=== PATIENT | male | born 1965 | race Caucasian/White ===

== ENCOUNTER 2018-03-08 15:04 | Emergency (ER) | payer OTHER ==
[2018-03-08 15:14] VITALS: BP 162/85; PULSE 79; RESP 18; TEMP 98.5
--- NOTE | 2018-03-08 16:20 | ED ---
Fall HPI - General Chief Complaint: Fall Stated Complaint: slip & fall/head injury [facility] Time Seen by Provider: 03/08/18 15:28 Source: patient, RN notes reviewed, old records reviewed Mode of arrival: ambulatory - History of Present Illness Initial Comments: this patient's a 52-year-old male chief complaint slip stairs causing a minor head injury. He states he has some scratches on his back and complains of some mid back pain. He states that he does not know if he lost consciousness or hit his head on the back of the stair. Patient initially went to [employer] [facility] was sent here for the head injury. Patient states that he's had no significant neck pain. He reports he has no bruising or bleeding on the scalp. Patient denies any recent fever, chills, shortness of breath, chest pain, abdominal pain, nausea vomiting, numbness or tingling, dysuria or hematuria, constipation or diarrhea, headaches or visual changes, or any other current symptoms - Related Data Previous Rx's Medication Instructions Recorded Cyclobenzaprine [Flexeril] 10 mg PO TID #15 tab 03/08/18 Ibuprofen [Motrin] 600 mg PO Q6HR PRN #15 tab 03/08/18 Allergies Allergy/AdvReac Type Severity Reaction Status Date / Time No Known Allergies Allergy Verified 03/08/18 15:15 Review of Systems ROS Statement: Those systems with pertinent positive or pertinent negative responses have been documented in the HPI. ROS Other: All systems not noted in ROS Statement are negative. Past Medical History Past Medical History: Hypertension History of Any Multi-Drug Resistant Organisms: None Reported Past Surgical History: No Surgical Hx Reported Past Psychological History: Depression Smoking Status: Never smoker Past Alcohol Use History: None Reported Past Drug Use History: None Reported General Exam - General Exam Comments Initial Comments: 52-year-old male. Alert and oriented. No acute distress. Limitations: no limitations General appearance: alert, in no apparent distress Head exam: Present: atraumatic, normocephalic, normal inspection Eye exam: Present: normal appearance, PERRL, EOMI. Absent: scleral icterus, conjunctival injection, periorbital swelling ENT exam: Present: normal exam, mucous membranes moist Neck exam: Present: normal inspection. Absent: tenderness, meningismus, lymphadenopathy Respiratory exam: Present: normal lung sounds bilaterally. Absent: respiratory distress, wheezes, rales, rhonchi, stridor Cardiovascular Exam: Present: regular rate, normal rhythm, normal heart sounds. Absent: systolic murmur, diastolic murmur, rubs, gallop, clicks GI/Abdominal exam: Present: soft, normal bowel sounds. Absent: distended, tenderness, guarding, rebound, rigid Extremities exam: Present: normal inspection, full ROM, normal capillary refill. Absent: tenderness, pedal edema, joint swelling, calf tenderness Back exam: Present: normal inspection, other ( is abrasions noted over the mid back. Tenderness over the thoracic spine and lumbar) Neurological exam: Present: alert, oriented X3, CN II-XII intact Expanded Patient oriented to: Present: person, place, time Speech: Present: fluid speech Cranial nerves: EOM's Intact: Normal Cerebellar function: Finger to Nose: Normal Upper motor neuron: Pronator Drift: Normal Sensory exam: Upper Extremity Light Touch: Normal, Lower Extremity Light Touch: Normal Motor strength exam: RUE: 5, LUE: 5, RLE: 5, LLE: 5 Eye Response: (4) open spontaneously Motor Response: (6) obeys commands Verbal Response: (5) oriented [place] Total: 15 Psychiatric exam: Present: normal affect, normal mood Skin exam: Present: warm, dry, intact, normal color. Absent: rash Course Vital Signs 03/08/18 03/08/18 15:07 17:19 Temperature 98.5 F 98.5 F Pulse Rate 79 79 Respiratory 18 18 Rate Blood Pressure 162/85 162/85 O2 Sat by Pulse 96 96 Oximetry Medical Decision Making - Medical Decision Making 52-year-old male presents emergency Department after falling at work. He slipped on the stairs. He has some abrasions over his back. Some tenderness over the thoracic and lumbar spine. X-rays were obtained. Report is really below. Patient informed of the results of the x-ray report was spondylolysis. Patient has no acute fractures. CT brain was also completed. Made for any acute abnormality's. Patient informed of all his results. Discussed when he had injury patient is monitored. Patient does not have any significant trauma bruising or abrasions over the scalp. Patient advised to take a temperature medication and muscle relaxers for the back pain. He will return to emergency department if any alarming signs or symptoms occur. Patiently following up with S and his work. - Radiology Data Radiology results: report reviewed CT brain is normal. No acute intracranial abnormality noted. Thoracic spine shows moderate endplate spondylolysis to the middle of her thoracic spine. No vertebral compression collapse or malalignment. Lumbar spine shows mild texture convex curvature. Mild to moderate degenerative disc disease. Gemini at L5-S1. Facet arthropathy in the mid to lower spine. No vertebral compression or collapse or malalignment. Disposition Clinical Impression: Spondylolysis of thoracolumbar region, Fall Disposition: HOME SELF-CARE Condition: Good Instructions: Back Pain (ED), Degenerative Disc Disease (ED) Additional Instructions: Patient recommended follow-up with primary care provider and strategic debriefing specialist. Return to the emergency department if any alarming signs or symptoms occur. Prescriptions: Cyclobenzaprine [Flexeril] 10 mg PO TID #15 tab Ibuprofen [Motrin] 600 mg PO Q6HR PRN #15 tab PRN Reason: Pain Is patient prescribed a controlled substance at d/c from ED?: No If prescribed controlled substance>3 days was MAPS reviewed?: No When asked, does pt state using other controlled substances?: No Referrals: Marisol Dias MD [Primary Care Provider] - 1-2 days Eliana Tabor DO [Doctor of Osteopathic Medicine] - 1-2 days Time of Disposition: 17:01
--- NOTE | 2018-03-08 16:44 | CT ---
EXAMINATION TYPE: CT brain wo con DATE OF EXAM: 03/08/2018 COMPARISON: NONE HISTORY: 52-year-old male Fall with possible head injury. Unsteadiness. TECHNIQUE: Examination was done in axial plane without intravenous contrast. Coronal and sagittal r econstructions performed. CT DLP: 826.8 mGycm Automated exposure control for dose reduction was used. FINDINGS: There is no evidence of acute intracranial hemorrhage, acute ischemic changes, mass, mass-effect, or extra-axial fluid collection. There is no effacement of cerebral sulci or basal subarachnoid cister ns. There is no hydrocephalus. There is no midline shift. Pérez-white matter distinction is preserv ed. Paranasal sinuses and mastoid air cells well pneumatized. Orbits and globes are intact. No calvarial fracture. IMPRESSION: No acute intracranial abnormality seen.
--- NOTE | 2018-03-08 16:53 | XR ---
EXAMINATION TYPE: XR thoracic spine 3 views, XR lumbar spine 3 views DATE OF EXAM: 03/08/2018 COMPARISON: NONE HISTORY: 52-year-old male with pain FINDINGS: Thoracic spine: 12 rib-bearing thoracic vertebral bodies. All pedicles are visualized. Moderate endplate spondylosis mid to lower thoracic spine. Vertebral body heights are maintained and alignment is preserved. Lumbar spine: Mild dextroconvex curvature. 5 lumbar type vertebral bodies. Moderate disc interspace narrowing and L 5-S1 with endplate spondylosis and sclerosis. Mild endplate spondylosis multiple other levels in the lumbar spine. Facet arthropathy mid to lower lumbar spine. Vertebral body heights are preserved and a lignment is maintained. IMPRESSION: 1. Thoracic spine: Moderate endplate spondylosis mid to lower thoracic spine. No vertebral compressio n collapse or malalignment. 2. Lumbar spine: Mild dextroconvex curvature. Mild to moderate degenerative disc disease, greatest at L5-S1. Additional facet arthropathy mid to lower lumbar spine. No vertebral compression collapse or malalignment.
== END 2018-03-08 17:22 | disposition home or self-care (01) ==
LOC: EC 15:04
DX: S09.90XA Unspecified injury of head, initial encounter (principal); M43.05 Spondylolysis, thoracolumbar region; M51.37 Other intervertebral disc degeneration, lumbosacral region; W10.9XXA Fall (on) (from) unspecified stairs and steps, initial encounter; Y99.0 Civilian activity done for income or pay
CPT/HCPCS: 70450; 72070; 72100; 99284

== ENCOUNTER → 2019-02-27 | Outpatient (CLI) | payer BC ==
[2019-02-27 08:24] LABS: Basophils # (A) 0.1 k/uL (0-0.2); Basophils % (A) 1 %; Eosinophils # (A) 0.4 k/uL (0-0.7); Eosinophils % (A) 6 %; HCT 42.9 % (39.0-53.0); HGB 14.8 gm/dL (13.0-17.5); Lymphocytes # (A) 1.6 k/uL (1.0-4.8); Lymphocytes % (A) 22 %; MCH 29.5 pg (25.0-35.0); MCHC 34.6 g/dL (31.0-37.0); MCV 85.4 fL (80.0-100.0); Mean Platelet Volume 6.5; Monocytes # (A) 0.4 k/uL (0-1.0); Monocytes % (A) 6 %; Neutrophils # (A) 4.6 k/uL (1.3-7.7); Neutrophils % (A) 63 %; Platelet Count 266 k/uL (150-450); RBC 5.02 m/uL (4.30-5.90); RDW 14.1 % (11.5-15.5); WBC 7.3 k/uL (3.8-10.6)
[2019-02-27 17:51] LABS: Albumin 4.6 g/dL (3.80-4.90); Albumin/Globulin Ratio 2.56 (1.60-3.17); Anion Gap 10.1 mmol/L (4.00-12.00); Calcium 9.2 mg/dL (8.7-10.3); Carbon Dioxide 23.9 mmol/L (21.6-31.8); Globulin 1.8 g/dL (1.6-3.3); LDL Cholesterol,Calculated 64.4 mg/dL (0.0-131.0); Potassium 4.1 mmol/L (3.5-5.5); Total Bilirubin 0.9 mg/dL (0.2-1.2); Total Protein 6.4 g/dL (6.2-8.2); VLDL Calculation 23.6 mg/dL (5.00-40.00)
== END ==
LOC: LABWHC1 07:37
PROVIDERS: ATTEND Family Medicine
DX: I10 Essential (primary) hypertension (principal); E78.5 Hyperlipidemia, unspecified; Z11.59 Encounter for screening for other viral diseases
CPT/HCPCS: 36415; 80053; 80061; 84439; 84443; 85025; 86803

== ENCOUNTER 2021-08-26 11:56 | Observation (INO) | payer BC ==
[2021-08-26] MEDS ORDERED: ASPIRIN 81 MG PO STA (12:41)
[2021-08-26] MEDS ORDERED: NITROGLYCERIN OINT 1 INCH/GM PACKET TOPICAL STA (12:41)
--- NOTE | 2021-08-26 12:49 | ED ---
General Adult HPI - General Chief complaint: Chest Pain Stated complaint: chest pain Time Seen by Provider: 08/26/21 12:00 Source: patient, EMS, RN notes reviewed, old records reviewed Mode of arrival: EMS Limitations: no limitations - History of Present Illness Initial comments: This a 56-year-old male with past medical history significant for high blood pressure diabetes and high cholesterol. Patient also states he has strong family history of heart disease. Patient states about 11:30 today started having significant left-sided chest pain radiated to his arm. Patient states she's became diaphoretic as well as very nauseated. Patient states currently the pain is a little better but he is not experiencing pain like this in the past. Patient denies any recent fever chills or cough. Patient denies lightheadedness dizziness or near syncopal episode. Patient denies any nausea vomiting or diarrhea. Patient denies any swelling to the legs. Patient denies any calf tenderness. Patient denies any back pain. - Related Data Home Medications Medication Instructions Recorded Confirmed Aspirin EC [Ecotrin Low Dose] 81 mg PO DAILY 08/26/21 08/26/21 Atorvastatin [Lipitor] 10 mg PO DAILY 08/26/21 08/26/21 DULoxetine HCL [Cymbalta] 120 mg PO DAILY 08/26/21 08/26/21 Famotidine [Pepcid] 20 mg PO BID 08/26/21 08/26/21 Flaxseed Oil 1,000 mg PO HS 08/26/21 08/26/21 Lactobacillus Acidophilus 1 tab PO DAILY 08/26/21 08/26/21 [Acidophilus] Levothyroxine Sodium [Synthroid] 25 mcg PO DAILY 08/26/21 08/26/21 Metoprolol Tartrate [Lopressor] 25 mg PO BID 08/26/21 08/26/21 Triamterene-Hctz 37.5-25Mg 1 tab PO DAILY 08/26/21 08/26/21 [Maxzide 37.5-25] Zolpidem Tartrate [Ambien] 10 mg PO HS 08/26/21 08/26/21 lisinopriL [Zestril] 5 mg PO DAILY 08/26/21 08/26/21 metFORMIN HCL 1,000 mg PO QAM 08/26/21 08/26/21 metFORMIN HCL 500 mg PO HS 08/26/21 08/26/21 Allergies Allergy/AdvReac Type Severity Reaction Status Date / Time No Known Allergies Allergy Verified 08/26/21 12:58 Review of Systems ROS Statement: Those systems with pertinent positive or pertinent negative responses have been documented in the HPI. ROS Other: All systems not noted in ROS Statement are negative. Past Medical History Past Medical History: Diabetes Mellitus, Hypertension Additional Past Medical History / Comment(s): Type 2 DM, History of Any Multi-Drug Resistant Organisms: None Reported Past Surgical History: Tonsillectomy Past Psychological History: Anxiety, Depression Smoking Status: Never smoker Past Alcohol Use History: None Reported Past Drug Use History: None Reported General Exam - General Exam Comments Initial Comments: GENERAL: Patient is well-developed and well-nourished. Patient is nontoxic and well- hydrated and is in mild distress. ENT: Neck is soft and supple. No significant lymphadenopathy is noted. Oropharynx is clear. Moist mucous membranes. Neck has full range of motion without micah citing any pain EYES: The sclera were anicteric and conjunctiva were pink and moist. Extraocular m ovements were intact and pupils were equal round and reactive to light. Eyelids were unremarkable. PULMONARY: Unlabored respirations. Good breath sounds bilaterally. No audible rales rhonchi or wheezing was noted. CARDIOVASCULAR: There is a regular rate and rhythm without any murmurs gallops or rubs. ABDOMEN: Soft and nontender with normal bowel sounds. No palpable organomegaly was noted. There is no palpable pulsatile mass. SKIN: Skin is clear with no lesions or rashes and otherwise unremarkable. NEUROLOGIC: Patient is alert and oriented x3. Cranial nerves II through XII are grossly intact. Motor and sensory are also intact. Normal speech, volume and content. Symmetrical smile. MUSCULOSKELETAL: Normal extremities with adequate strength and full range of motion. No lower extremity swelling or edema. No calf tenderness. LYMPHATICS: No significant lymphadenopathy is noted PSYCHIATRIC: Normal psychiatric evaluation. Limitations: no limitations Course Vital Signs 08/26/21 08/26/21 12:05 12:10 Temperature 97.9 F Pulse Rate 97 Pulse Rate [ 89 Data Services Developer ] Respiratory 16 Rate Blood Pressure 120/73 O2 Sat by Pulse 95 Oximetry Medical Decision Making - Medical Decision Making EKG shows normal sinus rhythm at 80 bpm SC interval 182 QRS is 86 QT interval 388 QTC is 469 per patient's EKG shows no ST segment elevation there is slight ST segment depression in 1 and aVL. Second EKG was done that showed normal sinus rhythm at 84 bpm SC interval 280 QRSs 86 QT interval 388 QTC is 458. Patient's EKG shows no ST segment elevation or depression. Chest x-ray shows no acute abnormality. I spoke with Dr. Oneill he agreed to admit the patient admitted the patient I consult cardiology continue the heparin and aspirin and Nitropaste on the floor. - Lab Data Result diagrams: 08/26/21 12:45 08/26/21 12:45 Lab Results 08/26/21 08/26/21 08/26/21 Range/Units 12:45 12:45 12:45 WBC 3.6 L (3.8-10.6) k/uL RBC 4.85 (4.30-5.90) m/uL Hgb 14.5 (13.0-17.5) gm/dL Hct 42.1 (39.0-53.0) % MCV 86.7 (80.0-100.0) fL MCH 30.0 (25.0-35.0) pg MCHC 34.5 (31.0-37.0) g/dL RDW 13.2 (11.5-15.5) % Plt Count 168 (150-450) k/uL MPV 7.1 Neutrophils % 64 % Lymphocytes % 19 % Monocytes % 12 % Eosinophils % 1 % Basophils % 1 % Neutrophils # 2.3 (1.3-7.7) k/uL Lymphocytes # 0.7 L (1.0-4.8) k/uL Monocytes # 0.4 (0-1.0) k/uL Eosinophils # 0.0 (0-0.7) k/uL Basophils # 0.0 (0-0.2) k/uL PT 10.6 (9.0-12.0) sec INR 1.0 (<1.2) APTT 22.1 (22.0-30.0) sec Sodium 132 L (137-145) mmol/L Potassium 3.6 (3.5-5.1) mmol/L Chloride 96 L (98-107) mmol/L Carbon Dioxide 26 (22-30) mmol/L Anion Gap 10 mmol/L BUN 13 (9-20) mg/dL Creatinine 0.78 (0.66-1.25) mg/dL Est GFR (CKD-EPI)AfAm >90 (>60 ml/min/1.73 sqM) Est GFR (CKD-EPI)NonAf >90 (>60 ml/min/1.73 sqM) Glucose 143 H (74-99) mg/dL Calcium 8.7 (8.4-10.2) mg/dL Magnesium 1.9 (1.6-2.3) mg/dL Total Bilirubin 0.6 (0.2-1.3) mg/dL AST 28 (17-59) U/L ALT 23 (4-49) U/L Alkaline Phosphatase 64 (38-126) U/L Troponin I (0.000-0.034) ng/mL Total Protein 6.5 (6.3-8.2) g/dL Albumin 3.9 (3.5-5.0) g/dL 08/26/21 Range/Units 12:45 WBC (3.8-10.6) k/uL RBC (4.30-5.90) m/uL Hgb (13.0-17.5) gm/dL Hct (39.0-53.0) % MCV (80.0-100.0) fL MCH (25.0-35.0) pg MCHC (31.0-37.0) g/dL RDW (11.5-15.5) % Plt Count (150-450) k/uL MPV Neutrophils % % Lymphocytes % % Monocytes % % Eosinophils % % Basophils % % Neutrophils # (1.3-7.7) k/uL Lymphocytes # (1.0-4.8) k/uL Monocytes # (0-1.0) k/uL Eosinophils # (0-0.7) k/uL Basophils # (0-0.2) k/uL PT (9.0-12.0) sec INR (<1.2) APTT (22.0-30.0) sec Sodium (137-145) mmol/L Potassium (3.5-5.1) mmol/L Chloride (98-107) mmol/L Carbon Dioxide (22-30) mmol/L Anion Gap mmol/L BUN (9-20) mg/dL Creatinine (0.66-1.25) mg/dL Est GFR (CKD-EPI)AfAm (>60 ml/min/1.73 sqM) Est GFR (CKD-EPI)NonAf (>60 ml/min/1.73 sqM) Glucose (74-99) mg/dL Calcium (8.4-10.2) mg/dL Magnesium (1.6-2.3) mg/dL Total Bilirubin (0.2-1.3) mg/dL AST (17-59) U/L ALT (4-49) U/L Alkaline Phosphatase (38-126) U/L Troponin I <0.012 (0.000-0.034) ng/mL Total Protein (6.3-8.2) g/dL Albumin (3.5-5.0) g/dL Critical Care Time Critical Care Time: Yes Total Critical Care Time: 35 Disposition Clinical Impression: Unstable angina pectoris Disposition: ADMITTED IP TO THIS HOSP Referrals: Marisol Dias MD [Primary Care Provider] - 1-2 days Time of Disposition: 14:38
[2021-08-26 12:57] LABS: Basophils % (A) 1 %; Eosinophils % (A) 1 %; HCT 42.1 % (39.0-53.0); HGB 14.5 gm/dL (13.0-17.5); Lymphocytes # (A) 0.7 k/uL (1.0-4.8); Lymphocytes % (A) 19 %; MCHC 34.5 g/dL (31.0-37.0); MCV 86.7 fL (80.0-100.0); Mean Platelet Volume 7.1; Monocytes # (A) 0.4 k/uL (0-1.0); Monocytes % (A) 12 %; Neutrophils # (A) 2.3 k/uL (1.3-7.7); Neutrophils % (A) 64 %; Platelet Count 168 k/uL (150-450); RBC 4.85 m/uL (4.30-5.90); RDW 13.2 % (11.5-15.5); WBC 3.6 k/uL (3.8-10.6)
[2021-08-26 13:07] LABS: Partial Thromboplastin Time 22.1 sec (22.0-30.0); Prothrombin Time 10.6 sec (9.0-12.0)
[2021-08-26 13:39] LABS: ALT 23 U/L (4-49); AST 28 U/L (17-59); African American GFR (CKD) >90 (>60 ml/min/1.73 sqM); Albumin 3.9 g/dL (3.5-5.0); Alkaline Phosphatase 64 U/L (38-126); Anion Gap 10 mmol/L; Blood Urea Nitrogen 13 mg/dL (9-20); Calcium 8.7 mg/dL (8.4-10.2); Carbon Dioxide 26 mmol/L (22-30); Chloride 96 mmol/L (98-107); Glucose 143 mg/dL (74-99); Magnesium 1.9 mg/dL (1.6-2.3); Non-African American GFR(CKD) >90 (>60 ml/min/1.73 sqM); Potassium 3.6 mmol/L (3.5-5.1); Sodium 132 mmol/L (137-145); Total Bilirubin 0.6 mg/dL (0.2-1.3); Total Protein 6.5 g/dL (6.3-8.2)
--- NOTE | 2021-08-26 14:11 | XR ---
EXAMINATION TYPE: XR chest 2V DATE OF EXAM: 08/26/2021 COMPARISON: NONE HISTORY: Chest pain TECHNIQUE: Frontal and lateral views of the chest are obtained on 3 images. FINDINGS: There is no focal air space opacity, pleural effusion, or pneumothorax seen. The cardiac silhouette size is within normal limits. Right hemidiaphragm mildly elevated. There are overlying art ifacts. The osseous structures are intact. IMPRESSION: No acute cardiopulmonary process.
[2021-08-26] MEDS ORDERED: HEPARIN SODIUM 1,000 UN/ML (10ML VL) IV ONE (14:36)
[2021-08-26] MEDS ORDERED: NITROGLYCERIN SL TABS 0.4 MG TAB SUBLINGUAL PRN (14:38)
[2021-08-26] MEDS ORDERED: HEPARIN SOD,PORK IN 0.45% NACL 25,000 UNIT in 0.45% NACL 1 250ML.BAG IV SCH (14:45)
[2021-08-26] MEDS ORDERED: NITROGLYCERIN OINT 1 INCH/GM PACKET TOPICAL SCH (18:00)
[2021-08-26] MEDS ORDERED: ACETAMINOPHEN TAB 325 MG TAB PO PRN (19:18)
[2021-08-26 19:45] LABS: Glucose,Whole Blood 143 mg/dL (75-99)
[2021-08-26] MEDS: FAMOTIDINE 20 MG TAB PO SCH (20:43)
[2021-08-26] MEDS: METOPROLOL TARTRATE 25 MG TAB PO SCH (20:44)
[2021-08-26] MEDS: ZOLPIDEM 10 MG TAB PO SCH (20:44)
[2021-08-26] MEDS: INSULIN ASPART (NovoLOG) 100 UNIT/ML VIAL SQ SCH (20:44)
[2021-08-26] MEDS: NITROGLYCERIN OINT 1 INCH/GM PACKET TOPICAL SCH (20:49)
--- NOTE | 2021-08-26 21:25 | P.HPIM ---
History of Present Illness H&P Date: 08/26/21 Chief Complaint: Chest Pain Patient is a 56-year-old male with a known history of hypertension, diabetes type 2 [id number], anxiety/depression presents to ER with complaints of chest pain. Patient states that his chest pain started around 11:30 AM this morning while he was sitting at the desk. Assist with nausea and shortness of breath and patient became diaphoretic. He also noted to have been left arm pain. Patient presented to ER for evaluation. Otherwise patient denied any complaints of fever or chills. No cough or sputum production. Denied any lig htheadedness or dizziness. Patient did have nausea and felt like throwing up. No leg swelling. Denied any exertional dyspnea. No recent illnesses. Chest x-ray showed no acute cardiopulmonary process. EKG showed normal sinus rhythm. Laboratory showed WBC 3.6, hemoglobin 14.5 and platelets 168 and lymphocytes 0.7 Sodium 132 potassium 3.6 chloride 96 BUN 13 and creatinine 0.74 and blood sugar is 143 Troponin x2 - COVID-19 PCR detected.. Patient has been afebrile and saturating at 98% on room air on admission. Review of Systems Constitutional: Patient denies any fever or chills . No generalized weakness or weight loss. Abdomen: Patient denied nausea vomiting and diarrhea and abdominal pain. Cardiovascular: Chest pain across the left side.no short of breath no palpitations. Respiratory: patient denied any cough or sputum production. No shortness of breath Neurologic: Patient denied any numbness or tingling headache. Musculoskeletal: Patient denies any complaints of joint swelling or deformity. Skin: Negative Psychiatric: Negative Endocrine: No heat or cold intolerance. No recent weight gain. Genitourinary: No dysuria or hematuria. All other 14 point ROS negative except the above Past Medical History Past Medical History: Diabetes Mellitus, Hypertension Additional Past Medical History / Comment(s): Type 2 DM, History of Any Multi-Drug Resistant Organisms: None Reported Past Surgical History: Tonsillectomy Past Psychological History: Anxiety, Depression Smoking Status: Never smoker Past Alcohol Use History: None Reported Past Drug Use History: None Reported Medications and Allergies Home Medications Medication Instructions Recorded Confirmed Type Aspirin EC [Ecotrin Low Dose] 81 mg PO DAILY 08/26/21 08/26/21 History Atorvastatin [Lipitor] 10 mg PO DAILY 08/26/21 08/26/21 History DULoxetine HCL [Cymbalta] 120 mg PO DAILY 08/26/21 08/26/21 History Famotidine [Pepcid] 20 mg PO BID 08/26/21 08/26/21 History Flaxseed Oil 1,000 mg PO HS 08/26/21 08/26/21 History Lactobacillus Acidophilus 1 tab PO DAILY 08/26/21 08/26/21 History [Acidophilus] Levothyroxine Sodium [Synthroid] 25 mcg PO DAILY 08/26/21 08/26/21 History Metoprolol Tartrate [Lopressor] 25 mg PO BID 08/26/21 08/26/21 History Triamterene-Hctz 37.5-25Mg 1 tab PO DAILY 08/26/21 08/26/21 History [Maxzide 37.5-25] Zolpidem Tartrate [Ambien] 10 mg PO HS 08/26/21 08/26/21 History lisinopriL [Zestril] 5 mg PO DAILY 08/26/21 08/26/21 History metFORMIN HCL 1,000 mg PO QAM 08/26/21 08/26/21 History metFORMIN HCL 500 mg PO HS 08/26/21 08/26/21 History Allergies Allergy/AdvReac Type Severity Reaction Status Date / Time No Known Allergies Allergy Verified 08/26/21 12:58 Physical Exam Vitals: Vital Signs Temp Pulse Pulse Pulse Resp BP BP 08/26/21 19:23 99.0 F 95 18 124/80 08/26/21 18:10 98.5 F 102 H 16 08/26/21 12:10 89 08/26/21 12:05 97.9 F 97 16 120/73 BP Pulse Ox 08/26/21 19:23 97 08/26/21 18:10 133/82 98 08/26/21 12:10 08/26/21 12:05 95 Intake and Output 08/26/21 08/26/21 08/26/21 06:59 14:59 22:59 Intake Total 180 Balance 180 Intake: Oral 180 Other: Weight 112.945 kg 112.945 kg PHYSICAL EXAMINATION: Patient is lying in the bed comfortably, no acute distress, awake alert and oriented.. HEENT: Normocephalic. Neck is supple. Pupils reactive. Nostrils clear. Oral cavity is moist. Neck reveals no JVD, carotid bruits, or thyromegaly. CHEST EXAMINATION: Trachea is central. Symmetrical expansion. Lung wheeler clear to auscultation and percussion. CARDIAC: Normal S1, S2 with no gallops. No murmurs ABDOMEN: Soft. Bowel sounds normal. No organomegaly. No abdominal bruits. Extremities: reveal no edema. No clubbing or cyanosis Neurologically awake, alert, oriented x3 with well-coordinated movements. No focal deficits noted Skin: No rash or skin lesions. Psychiatric: Cooperative. Nonsuicidal Musculoskeletal: No joint swelling or deformity. Normal range of motion. Results CBC & Chem 7: 08/26/21 12:45 08/26/21 12:45 Labs: Abnormal Lab Results - Last 24 Hours (Table) 08/26/21 08/26/21 08/26/21 Range/Units 12:45 12:45 15:45 WBC 3.6 L (3.8-10.6) k/uL Lymphocytes # 0.7 L (1.0-4.8) k/uL Sodium 132 L (137-145) mmol/L Chloride 96 L (98-107) mmol/L Glucose 143 H (74-99) mg/dL POC Glucose (mg/dL) (75-99) mg/dL Coronavirus (PCR) Detected A (Not Detectd) 08/26/21 Range/Units 19:44 WBC (3.8-10.6) k/uL Lymphocytes # (1.0-4.8) k/uL Sodium (137-145) mmol/L Chloride (98-107) mmol/L Glucose (74-99) mg/dL POC Glucose (mg/dL) 143 H (75-99) mg/dL Coronavirus (PCR) (Not Detectd) Thrombosis Risk Factor Assmnt - DVT/VTE Prophylaxis DVT/VTE Prophylaxis: Pharmacologic Prophylaxis ordered - Choose All That Apply Any of the Below Risk Factors Present?: Yes Each Factor Represents 1 point: Age 41-60 years, Obesity (BMI >25) Other Risk Factors: No Other congenital or acquired thrombophilia - If yes, enter type in comment: No Thrombosis Risk Factor Assessment Total Risk Factor Score: 2 Thrombosis Risk Factor Assessment Level: Low Risk Assessment and Plan Assessment: Acute COVID-19 infection Atypical chest pain. Ruled out ACS. Hypertension Hyperlipidemia Diabetes type 2 [id number] Family history of coronary disease. Hypothyroidism Anxiety/depression GI and DVT prophylaxis. *Plan: Patient required on telemetry monitoring. Serial EKG and troponin x3. Was started on heparin drip and cardiology was consulted. Patient test positive for COVID-19 infection. Currently not hypoxic. Continue with vitamin D3, zinc sulfate and ascorbic acid and will start on subcu anticoagulation. Procedures will be consulted. Patient will be candidate for monoclonal antibody therapy. Continue to follow closely. Follow-up inflammatory markers. Time with Patient: Greater than 30
[2021-08-26] MEDS ORDERED: HEPARIN SODIUM 1,000 UN/ML (10ML VL) IV PRN (23:40)
[2021-08-27] MEDS: NITROGLYCERIN OINT 1 INCH/GM PACKET TOPICAL SCH ×5 (01:59→23:45)
[2021-08-27 06:48] LABS: Partial Thromboplastin Time 36.1 sec (22.0-30.0)
[2021-08-27] MEDS ORDERED: HEPARIN SODIUM 1,000 UN/ML (10ML VL) IV PRN ×2 (07:22→07:24)
[2021-08-27] MEDS ORDERED: HEPARIN SODIUM 1,000 UN/ML (10ML VL) IV ONE (07:30)
[2021-08-27] MEDS: LEVOTHYROXINE 25 MCG TAB PO SCH (07:46)
[2021-08-27] MEDS: INSULIN ASPART (NovoLOG) 100 UNIT/ML VIAL SQ SCH ×4 (07:55→20:23)
[2021-08-27 07:56] LABS: Glucose,Whole Blood 123 mg/dL (75-99)
[2021-08-27] MEDS ORDERED: ASPIRIN 325 MG TAB PO SCH (09:00)
--- NOTE | 2021-08-27 09:43 | P.CRDCN ---
History of Present Illness Consult date: 08/27/21 Chief complaint: Chest discomfort History of present illness: The patient is a pleasant 56-year-old gentleman with diabetes and hypertension and dyslipidemia who presented to the emergency department complaining of chest discomfort. The patient describes discomfort mainly in the lower chest and upper abdomen. Started around 12:00 in the morning. He described the discomfort as a dull/tightness in the lower chest and upper abdomen. It radiated to his left arm. No associated symptoms of sweating or shortness of breath or dizziness or lightheadedness or presyncope or syncope. No fever and no chills. No presyncope or syncope. He underwent a workup including EKG showing sinus rhythm without any significant ST or T-wave abnormalities and cardiac enzymes came in to be unremarkable. Unfortunately the patient was tested positive for COVID-19 infection. Currently he is not experiencing any cough or sputum production and again no fever and no chills. Past Medical History Past Medical History: Diabetes Mellitus, Hypertension Additional Past Medical History / Comment(s): Type 2 DM, History of Any Multi-Drug Resistant Organisms: None Reported Past Surgical History: Tonsillectomy Past Psychological History: Anxiety, Depression Smoking Status: Never smoker Past Alcohol Use History: None Reported Past Drug Use History: None Reported Medications and Allergies Home Medications Medication Instructions Recorded Confirmed Type Aspirin EC [Ecotrin Low Dose] 81 mg PO DAILY 08/26/21 08/26/21 History Atorvastatin [Lipitor] 10 mg PO DAILY 08/26/21 08/26/21 History DULoxetine HCL [Cymbalta] 120 mg PO DAILY 08/26/21 08/26/21 History Famotidine [Pepcid] 20 mg PO BID 08/26/21 08/26/21 History Flaxseed Oil 1,000 mg PO HS 08/26/21 08/26/21 History Lactobacillus Acidophilus 1 tab PO DAILY 08/26/21 08/26/21 History [Acidophilus] Levothyroxine Sodium [Synthroid] 25 mcg PO DAILY 08/26/21 08/26/21 History Metoprolol Tartrate [Lopressor] 25 mg PO BID 08/26/21 08/26/21 History Triamterene-Hctz 37.5-25Mg 1 tab PO DAILY 08/26/21 08/26/21 History [Maxzide 37.5-25] Zolpidem Tartrate [Ambien] 10 mg PO HS 08/26/21 08/26/21 History lisinopriL [Zestril] 5 mg PO DAILY 08/26/21 08/26/21 History metFORMIN HCL 1,000 mg PO QAM 08/26/21 08/26/21 History metFORMIN HCL 500 mg PO HS 08/26/21 08/26/21 History Allergies Allergy/AdvReac Type Severity Reaction Status Date / Time No Known Allergies Allergy Verified 08/26/21 12:58 Physical Exam Vitals: Vital Signs Temp Pulse Pulse Pulse Resp BP BP 08/27/21 01:52 98.7 F 91 18 131/77 08/26/21 20:00 18 08/26/21 19:23 99.0 F 95 18 124/80 08/26/21 18:10 98.5 F 102 H 16 08/26/21 12:10 89 08/26/21 12:05 97.9 F 97 16 120/73 BP Pulse Ox 08/27/21 01:52 98 08/26/21 20:00 08/26/21 19:23 97 08/26/21 18:10 133/82 98 08/26/21 12:10 08/26/21 12:05 95 Intake and Output 08/26/21 08/27/21 08/27/21 22:59 06:59 14:59 Intake Total 180 316.923 105.291 Balance 180 316.923 105.291 Intake: Intake, IV Titration 66.923 105.291 Amount Heparin Sod,Pork in 0.45% 66.923 105.291 NaCl 25,000 unit In 0.45 % NaCl 1 250ml.bag @ 8.8 UNITS/KG/HR 9.939 mls/hr IV .Q24H [facility] Rx#: [id number] Oral 180 250 Other: # Voids 1 2 Weight 112.945 kg - Constitutional General appearance: no acute distress - Respiratory Respiratory: bilateral: CTA - Cardiovascular Rhythm: regular Heart sounds: normal: S1, S2 Abnormal Heart Sounds: systolic murmur Results 08/26/21 12:45 08/26/21 12:45 Cardiac Enzymes 08/26/21 08/26/21 08/26/21 Range/Units 12:45 12:45 15:39 AST 28 (17-59) U/L Troponin I <0.012 <0.012 (0.000-0.034) ng/mL 08/26/21 Range/Units 18:22 AST (17-59) U/L Troponin I <0.012 (0.000-0.034) ng/mL Coagulation 08/26/21 08/26/21 08/27/21 Range/Units 12:45 22:58 06:11 PT 10.6 (9.0-12.0) sec APTT 22.1 25.7 36.1 H (22.0-30.0) sec CBC 08/26/21 Range/Units 12:45 WBC 3.6 L (3.8-10.6) k/uL RBC 4.85 (4.30-5.90) m/uL Hgb 14.5 (13.0-17.5) gm/dL Hct 42.1 (39.0-53.0) % Plt Count 168 (150-450) k/uL Comprehensive Metabolic Panel 08/26/21 Range/Units 12:45 Sodium 132 L (137-145) mmol/L Potassium 3.6 (3.5-5.1) mmol/L Chloride 96 L (98-107) mmol/L Carbon Dioxide 26 (22-30) mmol/L BUN 13 (9-20) mg/dL Creatinine 0.78 (0.66-1.25) mg/dL Glucose 143 H (74-99) mg/dL Calcium 8.7 (8.4-10.2) mg/dL AST 28 (17-59) U/L ALT 23 (4-49) U/L Alkaline Phosphatase 64 (38-126) U/L Total Protein 6.5 (6.3-8.2) g/dL Albumin 3.9 (3.5-5.0) g/dL Current Medications Generic Name Dose Route Start Last Admin Trade Name Freq PRN Reason Stop Dose Admin Acetaminophen 650 mg 08/26/21 19:18 Acetaminophen Tab 325 Mg Tab PO Q6HR PRN Fever and/ or Pain Ascorbic Acid 500 mg 08/27/21 09:00 Ascorbic Acid 500 Mg Tab PO DAILY [facility] Aspirin 81 mg 08/27/21 09:00 Aspirin 81 Mg PO DAILY [facility] Atorvastatin Calcium 10 mg 08/27/21 09:00 Atorvastatin 10 Mg Tab PO DAILY [facility] Cholecalciferol 25 mcg 08/27/21 09:00 Cholecalciferol 25 Mcg (1000 Iu) Tablet PO DAILY [facility] Duloxetine HCl 120 mg 08/27/21 09:00 Duloxetine Hcl 60 Mg Capsule.Dr PO DAILY [facility] Famotidine 20 mg 08/26/21 21:00 08/26/21 20:43 Famotidine 20 Mg Tab PO 20 mg BID [facility] Administration Heparin Sodium (Porcine) 0 - 4,000 unit 08/27/21 07:22 Heparin Sodium 1,000 Un/Ml (10ml Vl) IV PER PROTOCOL PRN Low PTT Protocol Insulin Aspart 0 unit 08/26/21 21:00 08/27/21 07:55 Insulin Aspart (Novolog) 100 Unit/Ml Vial SQ Not Given ACHS [facility] Protocol Lactobacillus Acidoph/Bulgaricus 1 each 08/27/21 09:00 Lactobacillus Acidoph & Bulgar 1 Each Packet PO DAILY [facility] Levothyroxine Sodium 25 mcg 08/27/21 06:30 08/27/21 07:46 Levothyroxine 25 Mcg Tab PO 25 mcg DAILY@0630 [facility] Administration Lisinopril 5 mg 08/27/21 09:00 Lisinopril 5 Mg Tab PO DAILY [facility] Metoprolol Tartrate 50 mg 08/27/21 09:00 Metoprolol Tartrate 50 Mg Tab PO BID [facility] Nitroglycerin 0.4 mg 08/26/21 14:38 Nitroglycerin Sl Tabs 0.4 Mg Tab SUBLINGUAL Q5M PRN Chest Pain Nitroglycerin 1 inch 08/26/21 20:00 08/27/21 05:48 Nitroglycerin Oint 1 Inch/Gm Packet TOPICAL Not Given Q6HR [facility] Zinc Sulfate 220 mg 08/27/21 09:00 Zinc Sulfate 220 Mg Cap PO DAILY [facility] Zolpidem Tartrate 10 mg 08/26/21 21:00 08/26/21 20:44 Zolpidem 10 Mg Tab PO 10 mg HS [facility] Administration Intake and Output 08/26/21 08/27/21 08/27/21 22:59 06:59 14:59 Intake Total 180 316.923 105.291 Balance 180 316.923 105.291 Intake: Intake, IV Titration 66.923 105.291 Amount Heparin Sod,Pork in 0.45% 66.923 105.291 NaCl 25,000 unit In 0.45 % NaCl 1 250ml.bag @ 8.8 UNITS/KG/HR 9.939 mls/hr IV .Q24H [facility] Rx#: [id number] Oral 180 250 Other: # Voids 1 2 Weight 112.945 kg 08/26/21 12:45 08/26/21 12:45 Assessment and Plan Assessment: Assessment #1 atypical chest discomfort #2 multiple risk factors for CAD #3 recent infection with COVID-19 Plan #1 acute coronary event was ruled out #2 consider medical treatment in view of the active infection status #3 aspirin and statin and oral nitrate #4 consider increasing the dose of metoprolol #5 obtain an echo #6 follow up with the patient and further recommendation to follow
[2021-08-27 09:44] LABS: Basophils # (A) 0.02 X 10*3/uL (0.00-0.10); Basophils % (A) 0.5 %; Eosinophils # (A) 0.06 X 10*3/uL (0.04-0.35); Eosinophils % (A) 1.6 %; HCT 41.4 % (39.6-50.0); HGB 13.8 g/dL (13.0-17.0); Lymphocytes % (A) 38.5 %; MCH 28.7 pg (27.0-32.0); MCHC 33.3 g/dL (32.0-37.0); MCV 86.1 fL (80.0-97.0); Mean Platelet Volume 9.8 fL (9.5-12.2); Monocytes # (A) 0.67 X 10*3/uL (0.20-1.00); Monocytes % (A) 18.4 %; Neutrophils # (A) 1.48 X 10*3/uL (1.80-7.70); Neutrophils % (A) 40.7 %; Platelet Count 160 X 10*3/uL (140-440); RBC 4.81 X 10*6/uL (4.40-5.60); RDW 13.2 % (11.5-14.5); WBC 3.64 X 10*3/uL (4.50-10.00)
[2021-08-27] MEDS: ASCORBIC ACID 500 MG TAB PO SCH (10:09)
[2021-08-27] MEDS: ATORVASTATIN 10 MG TAB PO SCH (10:09)
[2021-08-27] MEDS: ASPIRIN 81 MG PO SCH (10:09)
[2021-08-27] MEDS: CHOLECALCIFEROL 25 MCG (1000 IU) TABLET PO SCH (10:10)
[2021-08-27] MEDS: DULoxetine HCL 60 MG CAPSULE.DR PO SCH (10:10)
[2021-08-27] MEDS: FAMOTIDINE 20 MG TAB PO SCH ×2 (10:10→20:23)
[2021-08-27] MEDS: lisinopriL 5 MG TAB PO SCH (10:11)
[2021-08-27] MEDS: LACTOBACILLUS ACIDOPH & BULGAR 1 EACH PACKET PO SCH (10:11)
[2021-08-27] MEDS: METOPROLOL TARTRATE 25 MG TAB PO SCH (10:12)
[2021-08-27] MEDS: ZINC SULFATE 220 MG CAP PO SCH (10:14)
[2021-08-27] MEDS: METOPROLOL TARTRATE 50 MG TAB PO SCH ×2 (10:17→20:23)
[2021-08-27 11:13] LABS: BUN/Creat Ratio 11.01 Ratio (12.00-20.00); Chol/HDL Ratio 2.51 Ratio; LDL Cholesterol,Calculated 33.7 mg/dL (0.0-131.0); VLDL Calculation 18.34 mg/dL (5.00-40.00)
[2021-08-27 11:14] LABS: African American GFR (CKD) 102.8 (60.0-200.0); Blood Urea Nitrogen 10.5 mg/dL (9.0-27.0); Calcium 8.5 mg/dL (8.7-10.3); Carbon Dioxide 26.4 mmol/L (21.6-31.8); Chloride 98 mmol/L (96-109); Glucose 123 mg/dL (70-110); LDH 135 U/L (120-246); Non-African American GFR(CKD) 88.7 (60.0-200.0); Potassium 4.1 mmol/L (3.5-5.5); Sodium 136 mmol/L (135-145)
[2021-08-27 12:15] LABS: C Reactive Protein <0.30 mg/dL (0.00-0.80)
[2021-08-27 12:41] LABS: Glucose,Whole Blood 117 mg/dL (75-99)
[2021-08-27] MEDS ORDERED: BAMLANIVIMAB (EUA) 700 MG, ETESEVIMAB (EUA) 1,400 MG in SODIUM CHLORIDE 0.9% 50 ML IVPB ONE (15:00)
[2021-08-27] MEDS ORDERED: SODIUM CHLORIDE 0.9% 50 ML IVPB ONE (15:00)
--- NOTE | 2021-08-27 16:03 | P.PN ---
Subjective Progress Note Date: 08/27/21 Patient is a 56-year-old male with a known history of hypertension, diabetes type 2 [id number], anxiety/depression presents to ER with complaints of chest pain. Patient states that his chest pain started around 11:30 AM this morning while he was sitting at the desk. Assist with nausea and shortness of breath and patient became diaphoretic. He also noted to have been left arm pain. Patient presented to ER for evaluation. Otherwise patient denied any complaints of fever or chills. No cough or sputum production. Denied any lightheadedness or dizziness. Patient did have nausea and felt like throwing up. No leg swelling. Denied any exertional dyspnea. No recent illnesses. Chest x-ray showed no acute cardiopulmonary process. EKG showed normal sinus rhythm. Laboratory showed WBC 3.6, hemoglobin 14.5 and platelets 168 and lymphocytes 0.7 Sodium 132 potassium 3.6 chloride 96 BUN 13 and creatinine 0.74 and blood sugar is 143 Troponin x2 - COVID-19 PCR detected.. Patient has been afebrile and saturating at 98% on room air on admission. 08/27/2021 Patient is seen and evaluated in follow-up this morning with no acute overnight issues. Patient was evaluated by cardiology recommending 2-D echo which is pending and possible adjustments and metoprolol. Plan is for outpatient stress testing in the next few weeks. Patient also positive for COVID-19 with infectious disease consulted and discussed about possible monoclonal antibodies as he is a candidate and will order. Patient denies any worsening shortness of breath, chest pain, palpitations. Patient is afebrile. No reports of nausea or vomiting noted and patient is tolerating diet. Review of systems: Constitutional: No reports of fatigue, fever, or chills Cardiovascular: No reports of chest pain or palpitations Respiratory: No reports of shortness of breath or cough GI: No reports of nausea, vomiting, or diarrhea : No reports of dysuria or retention Neurovascular: No reports of weakness or numbness All medications have been reviewed Active Medications Acetaminophen (Acetaminophen Tab 325 Mg Tab) 650 mg PO Q6HR PRN PRN Reason: Fever and/ or Pain Ascorbic Acid (Ascorbic Acid 500 Mg Tab) 500 mg PO DAILY [facility] Last Admin: 08/27/21 10:09 Dose: 500 mg Documented by: Aspirin (Aspirin 81 Mg) 81 mg PO DAILY [facility] Last Admin: 08/27/21 10:09 Dose: 81 mg Documented by: Atorvastatin Calcium (Atorvastatin 10 Mg Tab) 10 mg PO DAILY [facility] Last Admin: 08/27/21 10:09 Dose: 10 mg Documented by: Cholecalciferol (Cholecalciferol 25 Mcg (1000 Iu) Tablet) 25 mcg PO DAILY [facility] Last Admin: 08/27/21 10:10 Dose: 25 mcg Documented by: Duloxetine HCl (Duloxetine Hcl 60 Mg Capsule.Dr) 120 mg PO DAILY [facility] Last Admin: 08/27/21 10:10 Dose: 120 mg Documented by: Famotidine (Famotidine 20 Mg Tab) 20 mg PO BID [facility] Last Admin: 08/27/21 10:10 Dose: 20 mg Documented by: Heparin Sodium (Porcine) (Heparin Sodium 1,000 Un/Ml (10ml Vl)) 0 - 4,000 unit IV PER PROTOCOL PRN; Protocol PRN Reason: Low PTT Insulin Aspart (Insulin Aspart (Novolog) 100 Unit/Ml Vial) 0 unit SQ ACHS [facility]; Protocol Last Admin: 08/27/21 12:48 Dose: Not Given Documented by: Lactobacillus Acidoph/Bulgaricus (Lactobacillus Acidoph & Bulgar 1 Each Packet) 1 each PO DAILY [facility] Last Admin: 08/27/21 10:11 Dose: 1 each Documented by: Levothyroxine Sodium (Levothyroxine 25 Mcg Tab) 25 mcg PO DAILY@0630 [facility] Last Admin: 08/27/21 07:46 Dose: 25 mcg Documented by: Lisinopril (Lisinopril 5 Mg Tab) 5 mg PO DAILY [facility] Last Admin: 08/27/21 10:11 Dose: 5 mg Documented by: Metoprolol Tartrate (Metoprolol Tartrate 50 Mg Tab) 50 mg PO BID [facility] Last Admin: 08/27/21 10:17 Dose: 50 mg Documented by: Nitroglycerin (Nitroglycerin Sl Tabs 0.4 Mg Tab) 0.4 mg SUBLINGUAL Q5M PRN PRN Reason: Chest Pain Nitroglycerin (Nitroglycerin Oint 1 Inch/Gm Packet) 1 inch TOPICAL Q6HR [facility] Last Admin: 08/27/21 12:48 Dose: Not Given Documented by: Zinc Sulfate (Zinc Sulfate 220 Mg Cap) 220 mg PO DAILY [facility] Last Admin: 08/27/21 10:14 Dose: 220 mg Documented by: Zolpidem Tartrate (Zolpidem 10 Mg Tab) 10 mg PO HS [facility] Last Admin: 08/26/21 20:44 Dose: 10 mg Documented by: Physical exam: Patient is lying in the bed comfortably, no acute distress, awake alert and orie nted.. HEENT: Normocephalic. Neck is supple. Pupils reactive. Nostrils clear. Oral cavity is moist. Neck reveals no JVD, carotid bruits, or thyromegaly. CHEST EXAMINATION: Trachea is central. Symmetrical expansion. Lung wheeler clear to auscultation and percussion. CARDIAC: Normal S1, S2 with no gallops. No murmurs ABDOMEN: Soft. Bowel sounds normal. No organomegaly. No abdominal bruits. Extremities: reveal no edema. No clubbing or cyanosis Neurologically awake, alert, oriented x3 with well-coordinated movements. No focal deficits noted Skin: No rash or skin lesions. Psychiatric: Cooperative. Nonsuicidal Musculoskeletal: No joint swelling or deformity. Normal range of motion. Assessment: Acute COVID-19 infection Atypical chest pain. Ruled out ACS. Hypertension Hyperlipidemia Diabetes type 2 [id number] Family history of coronary disease. Hypothyroidism Anxiety/depression GI prophylaxis DVT prophylaxis Plan: Patient continued on telemetry monitoring. Serial EKG and troponin x3. Troponins remain negative. IV heparin discontinued and cardiology planning on doing outpatient stress testing and 2-D echo was ordered and pending. Infectious disease consulted for COVID-19 and started on vitamin and zinc supplements and will add Lovenox. Patient is likely a candidate for monoclonal antibodies and discussed with infectious disease and will be ordered. Patient denies shortness of breath and is currently resting comfortably on room air. Awaiting 2-D echo report with possible discharge in 24 hours. Objective - Vital Signs Vital signs: Vital Signs Temp 98.7 F 08/27/21 01:52 Pulse 91 08/27/21 01:52 Resp 18 08/27/21 01:52 BP 131/77 08/27/21 01:52 Pulse Ox 98 08/27/21 01:52 Intake & Output 08/26/21 08/27/21 08/27/21 18:59 06:59 18:59 Intake Total 180 316.923 105.291 Balance 180 316.923 105.291 Weight 112.945 kg Intake: Intake, IV Titration 66.923 105.291 Amount Heparin Sod,Pork in 0.45% 66.923 105.291 NaCl 25,000 unit In 0.45 % NaCl 1 250ml.bag @ 8.8 UNITS/KG/HR 9.939 mls/hr IV .Q24H [facility] Rx#: [id number] Oral 180 250 Other: # Voids 2 - Labs CBC & Chem 7: 08/27/21 06:11 08/27/21 06:11 Labs: Abnormal Lab Results - Last 24 Hours (Table) 08/26/21 08/26/21 08/26/21 Range/Units 12:45 12:45 15:45 WBC 3.6 L (3.8-10.6) k/uL Lymphocytes # 0.7 L (1.0-4.8) k/uL APTT (22.0-30.0) sec Sodium 132 L (137-145) mmol/L Chloride 96 L (98-107) mmol/L Glucose 143 H (74-99) mg/dL POC Glucose (mg/dL) (75-99) mg/dL Coronavirus (PCR) Detected A (Not Detectd) 08/26/21 08/27/21 08/27/21 Range/Units 19:44 06:11 07:55 WBC (3.8-10.6) k/uL Lymphocytes # (1.0-4.8) k/uL APTT 36.1 H (22.0-30.0) sec Sodium (137-145) mmol/L Chloride (98-107) mmol/L Glucose (74-99) mg/dL POC Glucose (mg/dL) 143 H 123 H (75-99) mg/dL Coronavirus (PCR) (Not Detectd)
[2021-08-27 17:44] LABS: Glucose,Whole Blood 98 mg/dL (75-99)
[2021-08-27 19:36] VITALS: RESP 18
[2021-08-27 20:08] LABS: Glucose,Whole Blood 142 mg/dL (75-99)
[2021-08-27] MEDS: ZOLPIDEM 10 MG TAB PO SCH (20:23)
[2021-08-28] MEDS: NITROGLYCERIN OINT 1 INCH/GM PACKET TOPICAL SCH ×2 (05:40→13:04)
[2021-08-28] MEDS: LEVOTHYROXINE 25 MCG TAB PO SCH (06:13)
[2021-08-28 07:11] LABS: Glucose,Whole Blood 117 mg/dL (75-99)
[2021-08-28] MEDS ORDERED: ENOXAPARIN 40 MG/0.4 ML SYRINGE SQ SCH (09:00)
[2021-08-28] MEDS: INSULIN ASPART (NovoLOG) 100 UNIT/ML VIAL SQ SCH ×2 (09:02→13:04)
[2021-08-28] MEDS: ATORVASTATIN 10 MG TAB PO SCH (09:16)
[2021-08-28] MEDS: DULoxetine HCL 60 MG CAPSULE.DR PO SCH (09:16)
[2021-08-28] MEDS: METOPROLOL TARTRATE 50 MG TAB PO SCH (09:16)
[2021-08-28] MEDS: FAMOTIDINE 20 MG TAB PO SCH (09:17)
[2021-08-28] MEDS: ZINC SULFATE 220 MG CAP PO SCH (09:17)
[2021-08-28] MEDS: ASPIRIN 81 MG PO SCH (09:17)
[2021-08-28] MEDS: CHOLECALCIFEROL 25 MCG (1000 IU) TABLET PO SCH (09:17)
[2021-08-28] MEDS: ASCORBIC ACID 500 MG TAB PO SCH (09:17)
[2021-08-28] MEDS: lisinopriL 5 MG TAB PO SCH (09:18)
[2021-08-28] MEDS: LACTOBACILLUS ACIDOPH & BULGAR 1 EACH PACKET PO SCH (09:19)
--- NOTE | 2021-08-28 12:00 | ECHOF ---
Referral Reason:rule out pericardial effusion, LV function MEASUREMENTS -------- HEIGHT: 180.3 cm WEIGHT: 112.9 kg BP: IVSd: 1.4 cm (0.6 - 1.1) LVIDd: 3.3 cm (3.9 - 5.3) LVPWd: 1.8 cm (0.6 - 1.1) IVSs: 1.9 cm LVIDs: 2.0 cm LVPWs: 2.1 cm LAESV Index (A-L): 24.33 ml/m Ao Diam: 3.5 cm (2.0 - 3.7) AV Cusp: 2.4 cm (1.5 - 2.6) LA Diam: 4.4 cm (2.7 - 3.8) MV EXCURSION: 12.885 mm (> 18.000) MV EF SLOPE: 99 mm/s (70 - 150) EPSS: 1.7 cm MV E Vitor: 0.95 m/s MV DecT: 196 ms MV A Vitor: 0.61 m/s MV E/A Ratio: 1.57 AR PHT: 529 ms RAP: 5.00 mmHg RVSP: 11.95 mmHg FINDINGS -------- This was a technically adequate study. The left ventricular size is normal. There is moderate concentric left ventricular hypertrophy. O verall left ventricular systolic function is normal with, an EF between 55 - 60 %. Normal LAP Grade 1 Diastolic Dysfunction. The right ventricle is normal in size. The left atrial size is normal. Normal LA size by volume 22+/-6 ml/m2. The right atrial size is normal. The aortic valve is trileaflet and appears structurally normal. There is mild aortic regurgitation. The mitral valve is normal. Mild mitral regurgitation is present. The tricuspid valve appears structurally normal. Mild tricuspid regurgitation present. Right vent ricular systolic pressure is normal at < 35 mmHg. There is no pulmonic regurgitation present. The aortic root size is normal. IVC Not well visulized. There is no pericardial effusion. CONCLUSIONS -------- 1. The left ventricular size is normal. 2. There is moderate concentric left ventricular hypertrophy. 3. Overall left ventricular systolic function is normal with, an EF between 55 - 60 %. 4. Normal LAP Grade 1 Diastolic Dysfunction. 5. There is mild aortic regurgitation. 6. Mild mitral regurgitation is present. 7. Mild tricuspid regurgitation present. 8. There is no pericardial effusion. [employer]: Mandie Henry RDCS
--- NOTE | 2021-08-28 12:04 | P.PN ---
Subjective The patient is a pleasant 56-year-old gentleman with type 2 diabetes, hypertension, dyslipidemia who presented to the emergency department complaining of chest discomfort. He underwent a workup including EKG showing sinus rhythm without any significant ST or T-wave abnormalities and cardiac enzymes negative x 3. Unfortunately the patient was tested positive for COVID-19 infection. Currently he is not experiencing any cough or sputum production and again no fever and no chills. He denies any further chest pain. Telemetry reviewed patient sinus mechanism HR 70s-80s, he does have very short episodes of atrial tachycardia. Metoprolol tartrate was increased to 50mg BID. Echocardiogram revealed EF of 5560 percent, moderate concentric left ventricular hypertrophy, mild mitral tissue monitor to auscultation He is currently maintained on aspirin milligrams daily, atorvastatin 10 mg daily, lisinopril 5 mg daily, metoprolol titrate 50 mg twice a day. Blood pressure 121/71, heart rate 80, afebrile oxygen saturation is 94% on room air. GENERAL: Well-appearing, well-nourished and in no acute distress. NECK: Supple without JVD or thyromegaly. LUNGS: Breath sounds clear to auscultation bilaterally. Respiration equal and unlabored. No wheezes, rales or rhonchi. HEART: Regular rate and rhythm, systolic ejection murmur, S1 and S2 heard. EXTREMITIES: Normal range of motion, no edema. No clubbing or cyanosis. Peripheral pulses intact. ASSESSMENT Chest pain, atypical, acute coronary syndrome has ruled out COVID-19 infection Type 2 diabetes Hypertension Dyslipidemia PLAN -From cardiology perspective patient is stable to be discharged home. -Recommend follow-up as an outpatient for stress test after patient is recovered from COVID-19 infection Objective - Vital Signs Vital signs: Vital Signs Temp 99.3 F 08/28/21 07:00 Pulse 80 08/28/21 07:00 Resp 18 08/28/21 07:00 BP 121/71 08/28/21 07:00 Pulse Ox 96 08/28/21 02:00 Intake & Output 08/27/21 08/28/21 08/28/21 18:59 06:59 18:59 Intake Total 105.291 525 Balance 105.291 525 Intake: Intake, IV Titration 105.291 Amount Heparin Sod,Pork in 0.45% 105.291 NaCl 25,000 unit In 0.45 % NaCl 1 250ml.bag @ 8.8 UNITS/KG/HR 9.939 mls/hr IV .Q24H [facility] Rx#: [id number] Oral 525 Other: # Voids 4 2 - Labs CBC & Chem 7: 08/27/21 06:11 08/27/21 06:11 Labs: Abnormal Lab Results - Last 24 Hours (Table) 08/27/21 08/27/21 08/27/21 Range/Units 06:11 06:11 12:39 WBC 3.64 L (4.50-10.00) X 10*3/uL Neutrophils # 1.48 L (1.80-7.70) X 10*3/uL BUN/Creatinine Ratio 11.01 L (12.00-20.00) Ratio Glucose 123 H (70-110) mg/dL POC Glucose (mg/dL) 117 H (75-99) mg/dL Calcium 8.5 L (8.7-10.3) mg/dL HDL Cholesterol 34.50 L (40.00-60.00) mg/dL 08/27/21 08/28/21 Range/Units 20:07 07:10 WBC (4.50-10.00) X 10*3/uL Neutrophils # (1.80-7.70) X 10*3/uL BUN/Creatinine Ratio (12.00-20.00) Ratio Glucose (70-110) mg/dL POC Glucose (mg/dL) 142 H 117 H (75-99) mg/dL Calcium (8.7-10.3) mg/dL HDL Cholesterol (40.00-60.00) mg/dL
[2021-08-28 12:26] LABS: Glucose,Whole Blood 116 mg/dL (75-99)
--- NOTE | 2021-08-28 12:49 | P.CONS ---
History of Present Illness - Reason for Consult Consult date: 08/27/21 COVID 19 Requesting physician: Mally Schultz - Chief Complaint chest pain x 1 day - History of Present Illness History of Present Illness : Patient is a 56-year male presenting to the ER yesterday afternoon for evaluation of chest pain mostly on the left side radiation to left arm patient felt diaphoretic and did have nausea but no vomiting patient denies having any shortness of breath no cough no abdominal pain no diarrhea, patient did have underlying history of diabetes and hypertension patient on presentation to the hospital was afebrile patient was not hypoxic currently 96 to 98% on room air patient did have a normal white count with lymphopenia D-dimer was normal creatinine was normal liver enzymes are normal patient did have a chest x-ray no acute cardiopulmonary process patient has been able to hospital work-up for unstable angina patient also noticed to have a positive Covid test that has prompted this infectious disease consultation and need for monoclonal antibody therapy Review of system: CONSTITUTIONAL: Positive for weakness denies fever. EYES: No complaint. ENT: No complaint. RESPIRATORY: No complaint. CARDIOVASCULAR: As per history of present illness. GENITOURINARY: No complaint. GASTROINTESTINAL: As per history of present illness. MUSCULOSKELETAL: No complaint. INTEGUMENTARY : No complaint. PSYCHOLOGIC: No complaint. ENDOCRINE: No complaint. NEUROLOGIC: No complaint. Past medical history : Reviewed, documented below Past surgical history : Reviewed, documented below Social history: Reviewed, documented below Medications: Reviewed, as documented below EXAMINATION: Vital sigans= Reviewed and documented below GENERAL DESCRIPTION: Middle-aged male lying in bed, no distress. No tachypnea or accessory muscle of respiration use. HEENT: Shows Pallor , no scleral icterus. Oral mucous membrane is dry. NECK: Trachea central, no thyromegaly. LUNGS: Unlabored breathing. Clear to auscultation anteriorly. No wheeze or crackle. HEART: S1, S2, regular rate and rhythm. ABDOMEN: Soft, no tenderness , guarding or rigidity EXTREMITIES: No edema feet SKIN: No rash, no masses palpable. NEUROLOGICAL: The patient is awake, alert, oriented x3, mood and affect normal. LABS AND RADIOLOGY: Reviewed results see below Assessment : 1-Patient presented to hospital with chest pain in this patient due to have multiple risk factors and is currently being worked up for unstable angina 2-patient with a positive Covid test in this patient who did have a multiple risk factor including BMI more than 30 diabetes and hypertension patient is not vaccinated and high risk of progression to full-blown pneumonia and will qualify for monoclonal antibody therapy Plan: 1-monoclonal antibodies has been ordered for the patient and the patient agree with infusion discussed with the pharmacy 2-droplet isolation 3-no need for steroids or remdesivir We will follow on clinical condition and cultures to further adjust medication if needed Thank you for this consultation we will follow the patient along with you Past Medical History Past Medical History: Diabetes Mellitus, Hypertension Additional Past Medical History / Comment(s): Type 2 DM, History of Any Multi-Drug Resistant Organisms: None Reported Past Surgical History: Tonsillectomy Past Psychological History: Anxiety, Depression Smoking Status: Never smoker Past Alcohol Use History: None Reported Past Drug Use History: None Reported Medications and Allergies Home Medications Medication Instructions Recorded Confirmed Type Aspirin EC [Ecotrin Low Dose] 81 mg PO DAILY 08/26/21 08/26/21 History Atorvastatin [Lipitor] 10 mg PO DAILY 08/26/21 08/26/21 History DULoxetine HCL [Cymbalta] 120 mg PO DAILY 08/26/21 08/26/21 History Famotidine [Pepcid] 20 mg PO BID 08/26/21 08/26/21 History Flaxseed Oil 1,000 mg PO HS 08/26/21 08/26/21 History Lactobacillus Acidophilus 1 tab PO DAILY 08/26/21 08/26/21 History [Acidophilus] Levothyroxine Sodium [Synthroid] 25 mcg PO DAILY 08/26/21 08/26/21 History Metoprolol Tartrate [Lopressor] 25 mg PO BID 08/26/21 08/26/21 History Triamterene-Hctz 37.5-25Mg 1 tab PO DAILY 08/26/21 08/26/21 History [Maxzide 37.5-25] Zolpidem Tartrate [Ambien] 10 mg PO HS 08/26/21 08/26/21 History lisinopriL [Zestril] 5 mg PO DAILY 08/26/21 08/26/21 History metFORMIN HCL 1,000 mg PO QAM 08/26/21 08/26/21 History metFORMIN HCL 500 mg PO HS 08/26/21 08/26/21 History Allergies Allergy/AdvReac Type Severity Reaction Status Date / Time No Known Allergies Allergy Verified 08/26/21 12:58 Physical Exam Vitals: Vital Signs Temp Pulse Pulse Resp BP BP Pulse Ox 08/27/21 07:00 98.9 F 96 17 133/82 95 08/27/21 01:52 98.7 F 91 18 131/77 98 08/26/21 20:00 18 08/26/21 19:23 99.0 F 95 18 124/80 97 08/26/21 18:10 98.5 F 102 H 16 133/82 98 Intake and Output 08/26/21 08/27/21 08/27/21 22:59 06:59 14:59 Intake Total 180 316.923 105.291 Balance 180 316.923 105.291 Intake: Intake, IV Titration 66.923 105.291 Amount Heparin Sod,Pork in 0.45% 66.923 105.291 NaCl 25,000 unit In 0.45 % NaCl 1 250ml.bag @ 8.8 UNITS/KG/HR 9.939 mls/hr IV .[facility] Rx#: [id number] Oral 180 250 Other: # Voids 1 2 Weight 112.945 kg Results CBC & Chem 7: 08/27/21 06:11 08/27/21 06:11 Labs: Abnormal Lab Results - Last 24 Hours (Table) 08/26/21 08/26/21 08/27/21 Range/Units 15:45 19:44 06:11 WBC (4.50-10.00) X 10*3/uL Neutrophils # (1.80-7.70) X 10*3/uL APTT (22.0-30.0) sec BUN/Creatinine Ratio 11.01 L (12.00-20.00) Ratio Glucose 123 H (70-110) mg/dL POC Glucose (mg/dL) 143 H (75-99) mg/dL Calcium 8.5 L (8.7-10.3) mg/dL HDL Cholesterol 34.50 L (40.00-60.00) mg/dL Coronavirus (PCR) Detected A (Not Detectd) 08/27/21 08/27/21 08/27/21 Range/Units 06:11 06:11 07:55 WBC 3.64 L (4.50-10.00) X 10*3/uL Neutrophils # 1.48 L (1.80-7.70) X 10*3/uL APTT 36.1 H (22.0-30.0) sec BUN/Creatinine Ratio (12.00-20.00) Ratio Glucose (70-110) mg/dL POC Glucose (mg/dL) 123 H (75-99) mg/dL Calcium (8.7-10.3) mg/dL HDL Cholesterol (40.00-60.00) mg/dL Coronavirus (PCR) (Not Detectd) 08/27/21 Range/Units 12:39 WBC (4.50-10.00) X 10*3/uL Neutrophils # (1.80-7.70) X 10*3/uL APTT (22.0-30.0) sec BUN/Creatinine Ratio (12.00-20.00) Ratio Glucose (70-110) mg/dL POC Glucose (mg/dL) 117 H (75-99) mg/dL Calcium (8.7-10.3) mg/dL HDL Cholesterol (40.00-60.00) mg/dL Coronavirus (PCR) (Not Detectd)
--- NOTE | 2021-08-28 13:24 | PN ---
PROGRESS NOTE DATE OF SERVICE: 08/28/2021 REASON FOR FOLLOWUP: Covid 19 infection. INTERVAL HISTORY: Patient is afebrile. The patient is feeling better. Breathing comfortably. No chest pain, shortness of breath or cough. Currently on room air. No vomiting. No abdominal pain. No diarrhea. PHYSICAL EXAMINATION: Blood pressure 121/71, pulse of 80, temperature of 98. He is 94% on room air. General description is a middle-aged male lying in bed in no distress. Respiratory system: Unlabored breathing. Clear to auscultation. No wheeze. Heart S1, S2. Regular. Abdomen soft, no tenderness. Extremities: No edema of the feet. LABS: No new labs have been obtained today. DIAGNOSTIC IMPRESSION AND PLAN: Patient with acute COVID-19 infection in this patient who did have multiple risk factors. The patient received monoclonal antibody therapy. Patient is currently not hypoxic. There is no need for steroids. Discharge plan is for zinc, ascorbic acid and close outpatient followup. MMODL / IJN: [id number] /
[2021-08-28 14:29] VITALS: BP 120/78; PULSE 71; TEMP 98.5
--- NOTE | 2021-09-04 03:21 | P.DS ---
Providers Date of admission: 08/26/21 14:38 Expected date of discharge: 08/28/21 Attending physician: Renuka Oneill Consults: 08/26/21 14:38 Consult Physician Urgent Consulting Provider: [facility] Consult Reason/Comments: Unstable angina Do you want consulting provider notified?: Yes 08/26/21 21:21 Consult Physician Routine Consulting Provider: Ray Schuler Consult Reason/Comments: COVID 19 infection Do you want consulting provider notified?: Yes, Notify in am Primary care physician: Marisol Dias Hospital Course: Final Diagnosis Acute COVID-19 infection Atypical chest pain. Ruled out ACS. Hypertension Hyperlipidemia Diabetes type 2 [id number] Family history of coronary disease. Hypothyroidism Anxiety/depression GI prophylaxis DVT prophylaxis Discharge disposition Patient is being discharged in a stable condition with guarded prognosis to home. Patient will follow-up with Dr. Dias in the outpatient setting upon discharge. Patient is to follow-up with cardiology in the outpatient setting for stress testing. Patient to continue with vitamin and zinc supplements for covid 19. Total time taken is greater than 35 minutes. Hospital course Patient is a 56-year-old male with a known history of hypertension, diabetes type 2 [id number], anxiety/depression presents to ER with complaints of chest pain. Patient states that his chest pain started around 11:30 AM this morning while he was sitting at the desk. Assist with nausea and shortness of breath and patient became diaphoretic. He also noted to have been left arm pain. Patient presented to ER for evaluation. Otherwise patient denied any complaints of fever or chills. No cough or sputum production. Denied any lightheadedness or dizziness. Patient did have nausea and felt like throwing up. No leg swelling. Denied any exertional dyspnea. No recent illnesses. Chest x-ray showed no acute cardiopulmonary process. EKG showed normal sinus rhythm. Laboratory showed WBC 3.6, hemoglobin 14.5 and platelets 168 and lymphocytes 0.7 Sodium 132 potassium 3.6 chloride 96 BUN 13 and creatinine 0.74 and blood sugar is 143 Troponin x2 - COVID-19 PCR detected.. Patient has been afebrile and saturating at 98% on room air on admission. 08/27/2021 Patient is seen and evaluated in follow-up this morning with no acute overnight issues. Patient was evaluated by cardiology recommending 2-D echo which is pending and possible adjustments and metoprolol. Plan is for outpatient stress testing in the next few weeks. Patient also positive for COVID-19 with infectious disease consulted and discussed about possible monoclonal antibodies as he is a candidate and will order. Patient denies any worsening shortness of breath, chest pain, palpitations. Patient is afebrile. No reports of nausea or vomiting noted and patient is tolerating diet. 08/28/2021 Patient is seen in follow up this morning and feels much better and requesting to go home. Patient was evaluated by cardiology and recommending outpatient stress testing once improved from covid 19. ID evaluated the patient and was maintained on vitamin and zinc supplements and was a candidate for Generon antibody and received. Patient not requiring oxygen and on room air. Currently no reports of chest pain, worsening shortness of breath, or palpitations. Patient is afebrile. No reports of nausea or vomiting and patient is tolerating diet. Patient will be discharged home today. Patient is sitting up in the bed comfortably, no acute distress, awake alert and oriented.. HEENT: Normocephalic. Neck is supple. Pupils reactive. Nostrils clear. Oral cavity is moist. Neck reveals no JVD, carotid bruits, or thyromegaly. CHEST EXAMINATION: Trachea is central. Symmetrical expansion. Lung wheeler clear to auscultation and percussion. CARDIAC: Normal S1, S2 with no gallops. No murmurs ABDOMEN: Soft. Bowel sounds normal. No organomegaly. No abdominal bruits. Extremities: reveal no edema. No clubbing or cyanosis Neurologically awake, alert, oriented x3 with well-coordinated movements. No focal deficits noted Skin: No rash or skin lesions. Psychiatric: Cooperative. Non-suicidal Musculoskeletal: No joint swelling or deformity. Normal range of motion. Please refer to medication reconciliation sheet for a list of medications. Patient Condition at Discharge: Stable Plan - Discharge Summary Discharge Rx Participant: No New Discharge Prescriptions: New Acetaminophen Tab [Tylenol] 650 mg PO Q6HR PRN tab PRN Reason: Fever And/ Or Pain Ascorbic Acid [Vitamin C] 500 mg PO DAILY 30 Days #30 tab Cholecalciferol [Vitamin D3 (25 Mcg = 1000 Iu)] 25 mcg PO DAILY 30 Days #30 tablet Zinc Sulfate [Orazinc] 220 mg PO DAILY 30 Days #30 cap Continue Zolpidem Tartrate [Ambien] 10 mg PO HS Triamterene-Hctz 37.5-25Mg [Maxzide 37.5-25] 1 tab PO DAILY Aspirin EC [Ecotrin Low Dose] 81 mg PO DAILY metFORMIN HCL 500 mg PO HS Famotidine [Pepcid] 20 mg PO BID Flaxseed Oil 1,000 mg PO HS Metoprolol Tartrate [Lopressor] 25 mg PO BID metFORMIN HCL 1,000 mg PO QAM lisinopriL [Zestril] 5 mg PO DAILY Levothyroxine Sodium [Synthroid] 25 mcg PO DAILY DULoxetine HCL [Cymbalta] 120 mg PO DAILY Atorvastatin [Lipitor] 10 mg PO DAILY Lactobacillus Acidophilus [Acidophilus] 1 tab PO DAILY Discharge Medication List Aspirin EC [Ecotrin Low Dose] 81 mg PO DAILY 08/26/21 [History] Atorvastatin [Lipitor] 10 mg PO DAILY 08/26/21 [History] DULoxetine HCL [Cymbalta] 120 mg PO DAILY 08/26/21 [History] Famotidine [Pepcid] 20 mg PO BID 08/26/21 [History] Flaxseed Oil 1,000 mg PO HS 08/26/21 [History] Lactobacillus Acidophilus [Acidophilus] 1 tab PO DAILY 08/26/21 [History] Levothyroxine Sodium [Synthroid] 25 mcg PO DAILY 08/26/21 [History] Metoprolol Tartrate [Lopressor] 25 mg PO BID 08/26/21 [History] Triamterene-Hctz 37.5-25Mg [Maxzide 37.5-25] 1 tab PO DAILY 08/26/21 [History] Zolpidem Tartrate [Ambien] 10 mg PO HS 08/26/21 [History] lisinopriL [Zestril] 5 mg PO DAILY 08/26/21 [History] metFORMIN HCL 1,000 mg PO QAM 08/26/21 [History] metFORMIN HCL 500 mg PO HS 08/26/21 [History] Acetaminophen Tab [Tylenol] 650 mg PO Q6HR PRN tab 08/28/21 [Rx] Ascorbic Acid [Vitamin C] 500 mg PO DAILY 30 Days #30 tab 08/28/21 [Rx] Cholecalciferol [Vitamin D3 (25 Mcg = 1000 Iu)] 25 mcg PO DAILY 30 Days #30 tablet 08/28/21 [Rx] Zinc Sulfate [Orazinc] 220 mg PO DAILY 30 Days #30 cap 08/28/21 [Rx] Follow up Appointment(s)/Referral(s): Marisol Dias MD [Primary Care Provider] - 1-2 days (office with let you know appointment time) Carlos Ashraf MD [STAFF PHYSICIAN] - 10/07/21 10:30 am Patient Instructions/Handouts: Coronavirus Disease 2019 (COVID-19), Angina (DC), Heart Healthy Diet (DC) Activity/Diet/Wound Care/Special Instructions: Activity Limited until follow-up Follow-up with cardiology outpatient for stress testing Continue to isolate for Covid for a period of 14 days from symptoms starting and/or first positive test Follow-up primary care provider on discharge Encourage fluids and rest Continue taking medications as prescribed Continue heart healthy diet Discharge Disposition: HOME SELF-CARE
== END 2021-08-28 15:08 | disposition home or self-care (01) ==
LOC: EC 11:56 → 6NMEDSUR 14:38
PROVIDERS: ADMIT Internal Medicine; ATTEND Internal Medicine
DX: U07.1 COVID-19 (principal); R07.89 Other chest pain; E11.9 Type 2 diabetes mellitus without complications; I11.9 Hypertensive heart disease without heart failure; E78.5 Hyperlipidemia, unspecified; E03.9 Hypothyroidism, unspecified; E78.00 Pure hypercholesterolemia, unspecified; I47.1 Supraventricular tachycardia; M79.602 Pain in left arm; E66.9 Obesity, unspecified; Z68.34 Body mass index [BMI] 34.0-34.9, adult; F41.9 Anxiety disorder, unspecified; F32.9 Major depressive disorder, single episode, unspecified; Z79.84 Long term (current) use of oral hypoglycemic drugs; Z79.82 Long term (current) use of aspirin; Z79.890 Hormone replacement therapy; Z79.899 Other long term (current) drug therapy; Z82.49 Family history of ischemic heart disease and other diseases of the circulatory system
CPT/HCPCS: 99291; 96376 ×3; 96366 ×2; 96372; 96365; 96375; 36415; 93005; 93306; 85379; 80061; 80053; 80048; 82728; 83615; 83735; 84484; 85025 ×2; 85610; 85730 ×2; 86140; 87635; 71046; G0378 ×3; M0245; J1650; J1644 ×3; J3490

== ENCOUNTER 2022-02-08 17:13 | Emergency (ER) | payer BC ==
[2022-02-08 17:22] VITALS: TEMP 98
[2022-02-08] MEDS ORDERED: ASPIRIN 81 MG PO STA (17:49)
--- NOTE | 2022-02-08 17:52 | ED ---
General Adult HPI - General Chief complaint: Chest Pain Stated complaint: Chest Pain Time Seen by Provider: 02/08/22 17:37 Source: patient Mode of arrival: ambulatory Limitations: no limitations - History of Present Illness Initial comments: Dictation was produced using [employer] dictation software. please excuse any grammatical, word or spelling errors. Chief Complaint: 56-year-old male presents emergency department with chest pain History of Present Illness: 56-year-old male presents to the emergency department with chest pain. Patient states his symptoms began today. He states that it was initially sharp and now it's dull. Radiates to the back. Patient states is not severe. He rates it as a 4-5 on a 10 scale. He denies that it's the worst pain ever in his life. No numbness any paresthesias to the arms and legs. Patient has any history of coronary artery disease. Back in August patient was admitted for chest pain he had a stress test and was told that it was equivocal back in October. Patient denies any family history of heart attacks. States that his chest pain was accompanied with diaphoresis. Patient not short of breath. The ROS documented in this emergency department record has been reviewed and c onfirmed by me. Those systems with pertinent positive or negative responses have been documented in the HPI. All other systems are other negative and/or noncontributory. PHYSICAL EXAM: General Impression: Alert and oriented x3, not in acute distress HEENT: Normocephalic atraumatic, extra-ocular movements intact, pupils equal and reactive to light bilaterally, mucous membranes moist. Cardiovascular: Heart regular rate and rhythm Chest: Able to complete full sentences, no retractions, no tachypnea Abdomen: abdomen soft, non-tender, non-distended, no organomegaly Musculoskeletal: Pulses present and equal in all extremities, no peripheral edema Motor: no focal deficits noted Neurological: CN II-XII grossly intact, no focal motor or sensory deficits noted Skin: Intact with no visualized rashes Psych: Normal affect and mood ED course: 56-year-old well-appearing male presents to the emergency department for atypical chest pain with typical features. Patient does have multiple risk factors including age, obesity, diabetes and hypertension. Signs upon arrival are within acceptable limits. EKG does not suggest any signs of ischemia or infarction. Disposition options were discussed with patient. He had 2 negative serial troponins. Patient reevaluated bedside at 10:40 PM found to be stable medical condition. Denies any chest symptoms at the moment. Patient is agreeable to discharge. He is told to follow-up with his primary care doctor or stone grader for outpatient stress test. Return precautions discussed. EKG interpretation: Ventricular rate 69, sinus rhythm,. 194, care is 90, QTC 394. No [place] prolongation, no QTC prolongation, no ST or T-wave changes noted. EKG compared August 26 2021 showing no changes. Overall, this EKG is unremarkable - Related Data Home Medications Medication Instructions Recorded Confirmed Aspirin EC [Ecotrin Low Dose] 81 mg PO DAILY 08/26/21 02/08/22 Atorvastatin [Lipitor] 10 mg PO DAILY 08/26/21 02/08/22 DULoxetine HCL [Cymbalta] 120 mg PO DAILY 08/26/21 02/08/22 Famotidine [Pepcid] 20 mg PO BID 08/26/21 02/08/22 Flaxseed Oil 1,000 mg PO DAILY 08/26/21 02/08/22 Levothyroxine Sodium [Synthroid] 25 mcg PO DAILY 08/26/21 02/08/22 Metoprolol Tartrate [Lopressor] 25 mg PO BID 08/26/21 02/08/22 Triamterene-Hctz 37.5-25Mg 1 tab PO DAILY 08/26/21 02/08/22 [Maxzide 37.5-25] Zolpidem Tartrate [Ambien] 10 mg PO HS 08/26/21 02/08/22 lisinopriL [Zestril] 5 mg PO DAILY 08/26/21 02/08/22 metFORMIN HCL 1,000 mg PO DAILY 08/26/21 02/08/22 metFORMIN HCL 500 mg PO HS 08/26/21 02/08/22 Multivitamins, Thera [Multivitamin 1 tab PO DAILY 02/08/22 02/08/22 (formulary)] Allergies Allergy/AdvReac Type Severity Reaction Status Date / Time No Known Allergies Allergy Verified 02/08/22 18:27 Review of Systems ROS Statement: Those systems with pertinent positive or pertinent negative responses have been documented in the HPI. ROS Other: All systems not noted in ROS Statement are negative. Past Medical History Past Medical History: Chest Pain / Angina, Diabetes Mellitus, Hypertension Additional Past Medical History / Comment(s): Type 2 DM, History of Any Multi-Drug Resistant Organisms: None Reported Past Surgical History: Tonsillectomy Past Psychological History: Anxiety, Depression Smoking Status: Never smoker Past Alcohol Use History: None Reported Past Drug Use History: None Reported General Exam Limitations: no limitations Course Vital Signs 02/08/22 17:20 Temperature 98 F Pulse Rate 78 Respiratory 20 Rate Blood Pressure 107/73 O2 Sat by Pulse 99 Oximetry Medical Decision Making - Lab Data Result diagrams: 02/08/22 18:19 02/08/22 18:19 Lab Results 02/08/22 02/08/22 02/08/22 Range/Units 18:19 18:19 18:19 WBC 11.3 H (3.8-10.6) k/uL RBC 5.32 (4.30-5.90) m/uL Hgb 15.8 (13.0-17.5) gm/dL Hct 46.1 (39.0-53.0) % MCV 86.7 (80.0-100.0) fL MCH 29.7 (25.0-35.0) pg MCHC 34.3 (31.0-37.0) g/dL RDW 13.7 (11.5-15.5) % Plt Count 257 (150-450) k/uL MPV 7.0 Neutrophils % 63 % Lymphocytes % 21 % Monocytes % 6 % Eosinophils % 6 % Basophils % 1 % Neutrophils # 7.1 (1.3-7.7) k/uL Lymphocytes # 2.4 (1.0-4.8) k/uL Monocytes # 0.7 (0-1.0) k/uL Eosinophils # 0.7 (0-0.7) k/uL Basophils # 0.1 (0-0.2) k/uL PT 10.9 (9.0-12.0) sec INR 1.0 (<1.2) APTT 24.8 (22.0-30.0) sec Sodium 132 L (137-145) mmol/L Potassium 3.9 (3.5-5.1) mmol/L Chloride 94 L (98-107) mmol/L Carbon Dioxide 26 (22-30) mmol/L Anion Gap 12 mmol/L BUN 16 (9-20) mg/dL Creatinine 0.88 (0.66-1.25) mg/dL Est GFR (CKD-EPI)AfAm >90 (>60 ml/min/1.73 sqM) Est GFR (CKD-EPI)NonAf >90 (>60 ml/min/1.73 sqM) Glucose 112 H (74-99) mg/dL Calcium 9.0 (8.4-10.2) mg/dL Troponin I (0.000-0.034) ng/mL 02/08/22 02/08/22 Range/Units 18:19 21:27 WBC (3.8-10.6) k/uL RBC (4.30-5.90) m/uL Hgb (13.0-17.5) gm/dL Hct (39.0-53.0) % MCV (80.0-100.0) fL MCH (25.0-35.0) pg MCHC (31.0-37.0) g/dL RDW (11.5-15.5) % Plt Count (150-450) k/uL MPV Neutrophils % % Lymphocytes % % Monocytes % % Eosinophils % % Basophils % % Neutrophils # (1.3-7.7) k/uL Lymphocytes # (1.0-4.8) k/uL Monocytes # (0-1.0) k/uL Eosinophils # (0-0.7) k/uL Basophils # (0-0.2) k/uL PT (9.0-12.0) sec INR (<1.2) APTT (22.0-30.0) sec Sodium (137-145) mmol/L Potassium (3.5-5.1) mmol/L Chloride (98-107) mmol/L Carbon Dioxide (22-30) mmol/L Anion Gap mmol/L BUN (9-20) mg/dL Creatinine (0.66-1.25) mg/dL Est GFR (CKD-EPI)AfAm (>60 ml/min/1.73 sqM) Est GFR (CKD-EPI)NonAf (>60 ml/min/1.73 sqM) Glucose (74-99) mg/dL Calcium (8.4-10.2) mg/dL Troponin I <0.012 <0.012 (0.000-0.034) ng/mL Disposition Clinical Impression: Chest pain Disposition: HOME SELF-CARE Condition: Fair Instructions (If sedation given, give patient instructions): Chest Pain (ED) Is patient prescribed a controlled substance at d/c from ED?: No Referrals: Carlos Ashraf MD [STAFF PHYSICIAN] - 1-2 days
[2022-02-08 18:45] LABS: African American GFR (CKD) >90 (>60 ml/min/1.73 sqM); Anion Gap 12 mmol/L; Blood Urea Nitrogen 16 mg/dL (9-20); Carbon Dioxide 26 mmol/L (22-30); Chloride 94 mmol/L (98-107); Glucose 112 mg/dL (74-99); Non-African American GFR(CKD) >90 (>60 ml/min/1.73 sqM); Potassium 3.9 mmol/L (3.5-5.1); Sodium 132 mmol/L (137-145)
[2022-02-08 18:47] LABS: Partial Thromboplastin Time 24.8 sec (22.0-30.0); Prothrombin Time 10.9 sec (9.0-12.0)
[2022-02-08 18:52] LABS: Basophils # (A) 0.1 k/uL (0-0.2); Basophils % (A) 1 %; Eosinophils # (A) 0.7 k/uL (0-0.7); Eosinophils % (A) 6 %; HCT 46.1 % (39.0-53.0); HGB 15.8 gm/dL (13.0-17.5); Lymphocytes # (A) 2.4 k/uL (1.0-4.8); Lymphocytes % (A) 21 %; MCH 29.7 pg (25.0-35.0); MCHC 34.3 g/dL (31.0-37.0); MCV 86.7 fL (80.0-100.0); Monocytes # (A) 0.7 k/uL (0-1.0); Monocytes % (A) 6 %; Neutrophils # (A) 7.1 k/uL (1.3-7.7); Neutrophils % (A) 63 %; Platelet Count 257 k/uL (150-450); RBC 5.32 m/uL (4.30-5.90); RDW 13.7 % (11.5-15.5); WBC 11.3 k/uL (3.8-10.6)
[2022-02-08 23:37] VITALS: BP 122/91; PULSE 75; RESP 16
== END 2022-02-08 23:37 | disposition home or self-care (01) ==
LOC: EC 17:13
DX: R07.89 Other chest pain (principal); I10 Essential (primary) hypertension; E11.9 Type 2 diabetes mellitus without complications; Z79.82 Long term (current) use of aspirin; Z79.899 Other long term (current) drug therapy; Z79.84 Long term (current) use of oral hypoglycemic drugs
CPT/HCPCS: 36415; 80048; 84484; 85025; 85610; 85730; 93005; 99285

== ENCOUNTER → 2022-04-08 | Outpatient (CLI) | payer BC ==
--- NOTE | 2022-04-08 19:30 | CONS ---
CONSULTATION DATE OF SERVICE: 04/08/2022 57-year-old gentleman has [facility] for possible obstructive sleep apnea-hypopnea syndrome. HISTORY OF PRESENT ILLNESS SLEEP-WAKE EVALUATION: SLEEP SCHEDULE: Patient's usual sleep schedule from 10:30 p.m. to 6:00 am on working days and from 11 p.m. to 7 or 8 a.m. on weekends. FALLING ASLEEP: He does have problems with falling asleep sometimes has TV set in bedroom. DURING SLEEP: Usually sleeps on the side position. According to his family, he snores and he wakes up from sleep with nocturia. He is on treatment with Ambien at bedtime because he does have difficulties falling asleep. No history of hypnagogic hallucinations, sleep paralysis or cataplexy. DURING THE DAY/SLEEP WAKE EVALUATION: In the morning, the patient wakes up tired, has difficulties paying attention, worries about his sleep, has problems with memory, concentration, irritability, depression, anxiety, claustrophobia. [place] Sleepiness Scale is 3. Usually he does not take any naps. PAST MEDICAL HISTORY: Positive for hypertension, diabetes mellitus, COVID 19 in August 2021, anxiety, depression, episodes of chest pain under evaluation by supervisor spring up for possible coronary artery disease, planning for cardiac cath. PAST SURGICAL HISTORY: Tonsillectomy. CURRENT MEDICATIONS: Ambien 10 mg at bedtime p.m. p.r.n., triamterene hydrochlorothiazide 37.5/25 mg once a day, metoprolol 25 mg twice a day, Cymbalta 90 mg once a day, metformin 500 mg 2 tablets in the morning, 1 tablet in the evening, famotidine 20 mg twice a day, atorvastatin 10 mg once a day, levothyroxine 25 mcg once a day, lisinopril 5 mg once a day, buspirone 10 mg twice a day. Remeron 15 mg once a day, aspirin 81 mg once a day. Nitroglycerin as needed. SOCIAL HISTORY: Negative for smoking, alcohol consumption occasional. FAMILY HISTORY: Snoring, emphysema, headaches, diabetes, acid reflux, mental illness. REVIEW OF SYSTEMS: Awakenings from sleep with panic attacks, snoring. PHYSICAL EXAMINATION: GENERAL: gentleman without distress. BP 124/76, HR 112, RR 20, height 5 feet 11-1/4 inches, weight: 249.4 pounds, body mass index 34.5, temperature 96.4, oxygen saturation at room air 96%. Oropharynx: Extremely low position of soft palate, Mallampati 4. NECK is 19 inches in circumference. Neck: Supple, no JVD. Thyroid is not palpable. LUNGS: Clear to percussion and to auscultation. Good air exchange. No wheezing or rhonchi. HEART: S1, S2 regular. No murmurs, gallops, or rubs. ABDOMEN: Obese. Soft and nontender. Bowel sounds are present. No organomegaly appreciated. EXTREMITIES: No clubbing or cyanosis. [employer] ETL DEVELOPER: Awake, alert, and oriented X3. Cranial nerves 2 to 7 intact. There is no fasciculation or atrophy. noted. No focal deficits observed. IMPRESSION: 1. Snoring, awakenings from sleep with nocturia, extremely low position of soft palate, Mallampati 4 extremely wide neck, 19 inches in circumference; obstructive sleep apnea-hypopnea syndrome. 2. Hypertension. 3. Episodes of chest pain under evaluation by supervisor spring up for possible coronary artery disease planning to have a cardiac cath. 4. Diabetes mellitus. 5. Acid reflux. 6. Anxiety. 7. Depression. 8. History of panic attacks. 9. Hypothyroidism. 10.Status post COVID-19 in August 2021. 11.Status post tonsillectomy. PLAN: 1. Polysomnography for evaluation of patient's breathing during sleep. 2. CPAP/BiPAP titration if sleep study confirms obstructive sleep apnea-hypopnea syndrome. 3. Preferable position during sleep on the side. 4. No driving if patient feels any sleepiness. 5. I will see patient for follow up visit to explain results of testing and following plan. Thank you very much for referring this patient for consultation. Sincerely, Josue Pratt MD, PhD, FAASM Diplomat of [employer] Sleep Medicine Board of [employer] [facility] [place] MMODL / TIFFANY: [id number] /
== END | disposition home or self-care (01) ==
LOC: SLEEP 14:49
PROVIDERS: ATTEND Internal Medicine
DX: G47.33 Obstructive sleep apnea (adult) (pediatric) (principal); I10 Essential (primary) hypertension; E11.9 Type 2 diabetes mellitus without complications; K21.9 Gastro-esophageal reflux disease without esophagitis; F41.9 Anxiety disorder, unspecified; F32.9 Major depressive disorder, single episode, unspecified; E03.9 Hypothyroidism, unspecified; Z86.16 Personal history of COVID-19; Z90.89 Acquired absence of other organs
CPT/HCPCS: 99211

== ENCOUNTER 2022-04-17 07:25 | Day surgery (SDC) | payer BC ==
[2022-04-16 09:03] VITALS: BMI 36.2
[~2022-04-17 07:25] MED LIST: ALPRAZolam 0.25 MG TAB PO PRN; ALPRAZolam 0.5 MG TAB PO PRN; ASPIRIN 325 MG TAB PO STA; ATORVASTATIN 80 MG TAB PO STA; HEPARIN SODIUM,PORCINE 10,000 UNIT in SODIUM CHLORIDE 0.9% 1,000 ML IRRIGATION PRN; HEPARIN SODIUM,PORCINE 2,500 UNIT in SODIUM CHLORIDE 0.9% 250 ML IRRIGATION PRN; NITROGLYCERIN SL TABS 0.4 MG TAB SUBLINGUAL PRN; SODIUM CHLORIDE 0.9% 1,000 ML in EMPTY BAG 1 BAG IV SCH
[2022-04-17 07:50] LABS: Glucose,Whole Blood 139 mg/dL (70-110)
[2022-04-17 07:55] VITALS: RESP 16; TEMP 98.4
[2022-04-17 08:15] LABS: Basophils # (A) 0.1 k/uL (0-0.2); Basophils % (A) 1 %; Eosinophils # (A) 0.7 k/uL (0-0.7); Eosinophils % (A) 6 %; HCT 44.2 % (39.0-53.0); HGB 15.3 gm/dL (13.0-17.5); Lymphocytes # (A) 2.6 k/uL (1.0-4.8); Lymphocytes % (A) 24 %; MCH 30.8 pg (25.0-35.0); MCHC 34.7 g/dL (31.0-37.0); MCV 88.9 fL (80.0-100.0); Mean Platelet Volume 7.1; Monocytes # (A) 0.7 k/uL (0-1.0); Monocytes % (A) 6 %; Neutrophils # (A) 6.3 k/uL (1.3-7.7); Neutrophils % (A) 59 %; Platelet Count 293 k/uL (150-450); RBC 4.97 m/uL (4.30-5.90); RDW 13.9 % (11.5-15.5); WBC 10.8 k/uL (3.8-10.6)
[2022-04-17 08:16] LABS: African American GFR (CKD) >90 (>60 ml/min/1.73 sqM); Anion Gap 9 mmol/L; Blood Urea Nitrogen 16 mg/dL (9-20); Calcium 9.4 mg/dL (8.4-10.2); Carbon Dioxide 24 mmol/L (22-30); Chloride 106 mmol/L (98-107); Glucose 143 mg/dL (74-99); Non-African American GFR(CKD) >90 (>60 ml/min/1.73 sqM); Sodium 139 mmol/L (137-145)
[2022-04-17 08:22] LABS: Potassium 4.8 mmol/L (3.5-5.1)
[2022-04-17] MEDS ORDERED: HEPARIN SODIUM 1,000 UN/ML (10ML VL) ONE (09:52)
[2022-04-17] MEDS ORDERED: VERAPAMIL 2.5 MG/ML 2 ML AMP ONE (09:52)
[2022-04-17] MEDS ORDERED: MIDAZOLAM 2 MG/2 ML VIAL IVP ONE (10:09)
[2022-04-17] MEDS ORDERED: LIDOCAINE 1% INJ 10MG/ML (5 ML VIAL-PF) SQ ONE (10:12)
[2022-04-17] MEDS ORDERED: VERAPAMIL SYRINGE (5 MG/10 ML) INTRAARTER ONE (10:14)
[2022-04-17] MEDS ORDERED: HEPARIN SODIUM 1,000 UN/ML (10ML VL) IVP ONE (10:15)
[2022-04-17] MEDS ORDERED: IOPAMIDOL-370 125ML BTL INJ ONE (10:33)
[2022-04-17] MEDS ORDERED: RX INFO: IV CONTRAST WAS GIVEN 1 EACH MISC MISCELLANE PRN (10:37)
--- NOTE | 2022-04-17 10:41 | P.PCN ---
Date of Procedure: 04/17/22 Operative Findings: CARDIAC CATHETERIZATION PERFORMING PHYSICIAN: Carlos Ashraf MD, RPVI PROCEDURE PERFORMED: 1. Selective right and left coronary angiogram 2. Left heart catheterization INDICATION: Chest discomfort and this 57-year-old gentleman with diabetes and hypertension and dyslipidemia was experiencing chest discomfort and underwent myocardial perfusion imaging stress test came in to be abnormal. In the light of that a heart catheterization was advised COMPLICATION: None APPROACH: Right radial artery LEVEL OF SEDATION: Moderate with a sedation length of 35 minutes PROCEDURE DESCRIPTION: After obtaining an informed consent, the patient was brought to cardiac r and d lab technician. Local anesthesia was performed using lidocaine subcutaneously. The right radial artery was cannulated using Seldinger technique, the guidewire passed ea sily, following that we advanced a 5-[place] sheath dilator assembly, the wire and dilator were removed and sheath was flushed. Following that, 2 mg of verapamil along with 5000 unit heparin were given. Selective right and left coronary angiogram using a JL 3.5 for the left coronary system and multipurpose catheter for the right coronary system Following that we did left heart catheterization using 6-[place] pigtail catheter. The procedure was completed there was no complication. SELECTIVE CORONARY ANGIOGRAM: The right coronary artery: Is a large caliber vessel and a dominant vessel. The RCA is angiographically normal distally bifurcates into PDA and PLV branches both appeared to be angiographically normal Left main: Angiographically normal and bifurcates into the LCx and LAD The left circumflex: Is a large caliber vessel and codominant vessel. The LCx is angiographically normal and gives rises into the first and second obtuse marginal branches and distally bifurcates into PDA and PLV branches. The left anterior descending artery: Is a large caliber vessel. Its angiographically normal and gives rises into the 2 diagonal branches and they appeared to be angiographically normal HEMODYNAMICS: The LVEDP was 12 mmHg was no significant gradient across aortic valve CONCLUSION: 1. Normal coronary angiogram 2. Normal left-sided filling pressure POSTPROCEDURE MANAGEMENT: Medical treatment and follow-up with a
[2022-04-17] MEDS ORDERED: SODIUM CHLORIDE 0.9% 1,000 ML IV SCH (10:45)
[2022-04-17 13:59] VITALS: BP 111/65; PULSE 86
== END 2022-04-17 14:17 | disposition home or self-care (01) ==
LOC: CATHCVL 07:25
PROVIDERS: ATTEND Internal Medicine Interventional Cardiology
DX: R94.39 Abnormal result of other cardiovascular function study (principal); R07.89 Other chest pain; E11.9 Type 2 diabetes mellitus without complications; I10 Essential (primary) hypertension; E78.5 Hyperlipidemia, unspecified; R01.1 Cardiac murmur, unspecified; Z79.82 Long term (current) use of aspirin; Z79.899 Other long term (current) drug therapy; Z79.84 Long term (current) use of oral hypoglycemic drugs; Z20.822 Contact with and (suspected) exposure to COVID-19
CPT/HCPCS: 93458; 80048; 85025; 87635; C1769; C1894; C1751; J2250; J2001; J1644; Q9967

== ENCOUNTER → 2024-04-28 | Outpatient (CLI) | payer BC ==
[2024-04-28 18:19] LABS: Basophils # (A) 0.09 X 10*3/uL (0.00-0.10); Basophils % (A) 1.1 %; Eosinophils # (A) 0.56 X 10*3/uL (0.04-0.35); Eosinophils % (A) 6.8 %; HCT 39.6 % (39.6-50.0); HGB 13.8 g/dL (13.0-17.0); Lymphocytes # (A) 2.23 X 10*3/uL (0.90-5.00); MCH 28.9 pg (27.0-32.0); MCHC 34.8 g/dL (32.0-37.0); MCV 82.8 FL (80.0-97.0); Mean Platelet Volume 9.1 FL (9.5-12.2); Monocytes # (A) 0.62 X 10*3/uL (0.20-1.00); Monocytes % (A) 7.5 %; NRBC Per 100 WBC 0 X 10*3/uL (0.00-0.01); Neutrophils # (A) 4.71 X 10*3/uL (1.80-7.70); Neutrophils % (A) 57.1 %; Platelet Count 173 X 10*3/uL (140-440); RBC 4.78 X 10*6/uL (4.40-5.60); RDW 13.7 % (11.5-14.5); WBC 8.25 X 10*3/uL (4.50-10.00)
== END | disposition home or self-care (01) ==
LOC: LABWHC1 12:43
PROVIDERS: ATTEND Family Medicine
DX: D72.829 Elevated white blood cell count, unspecified (principal)
CPT/HCPCS: 36415; 85025